=== PATIENT | female | born 1965 | race Caucasian/White ===

== ENCOUNTER 2018-09-20 12:35 | Inpatient (IN) | payer BC, OTHER ==
[2018-09-20 15:35] VITALS: BMI 27.6
--- NOTE | 2018-09-20 16:46 | HP ---
CIWA Score Nausea/Vomitin Muscle Tremors: 4-Moderate,w/Arms Extend Anxiety: 2 Agitation: 1-Slight > Activity Paroxysmal Sweats: 2 Orientation: 0-Oriented Tacttile Disturbances: 0-None Auditory Disturbances: 0-None Visual Disturbances: 0-None Headache: 2-Mild CIWA-Ar Total Score: 13 - Admission Criteria OASAS Guidelines: Admission for Medically Managed Detox: Requires at least one of the followin. CIWA greater than 12 2. Seizures within the past 24 hours 3. Delirium tremens within the past 24 hours 4. Hallucinations within the past 24 hours 5. Acute intervention needed for co occurring medical disorder 6. Acute intervention needed for co occurring psychiatric disorder 7. Severe withdrawal that cannot be handled at a lower level of care (continued vomiting, continued diarrhea, abnormal vital signs) requiring intravenous medication and/or fluids 8. Patient presents the following: CIWA greater than 12 Admission Criteria Met: Admission criteria met Admission ROS [facility] - [facility] Chief Complaint: alcohol detox: "Im an alcoholic and don't want to " 53 yo with hypothyroidism, pre-diabetic, colon polyps, asthma. stopped for about 3 years after detox in 2013. Restarted drinking 04/2018 Alcohol- drinks vodka- 1 pint-1 1/2 pints/day, no h/o seizures. DUR_ no controlled substances Utox- neg, SOO- 0.429 Allergies/Adverse Reactions: Allergies Allergy/AdvReac Type Severity Reaction Status Date / Time No Known Allergies Allergy Verified 09/20/18 18:47 Exam Limitations: No Limitations - Ebola screening Have you traveled outside of the country in the last 21 days: No (N) Have you had contact with anyone from an Ebola affected area: No Have you been sick,other than usual withdrawal symptoms: No Do you have a fever: No - Review of Systems Constitutional: No Symptoms Reported EENT: reports: No Symptoms Reported Respiratory: reports: No Symptoms reported Cardiac: reports: No Symptoms Reported GI: reports: No Symptoms Reported : reports: No Symptoms Reported Musculoskeletal: reports: No Symptoms Reported Integumentary: reports: No Symptoms Reported Neuro: reports: No Symptoms reported Endocrine: reports: No Symptoms Reported Hematology: reports: No Symptoms Reported Psychiatric: reports: No Sypmtoms Reported Other Systems: Reviewed and Negative Patient History - Patient Medical History Hx Anemia: No Hx Asthma: Yes (DX 2000) Hx Chronic Obstructive Pulmonary Disease (COPD): No Hx Cancer: No Hx Cardiac Disorders: No Hx Congestive Heart Failure: No Hx Hypertension: No Hx Hypercholesterolemia: No Hx Pacemaker: No HX Cerebrovascular Accident: No Hx Seizures: No Hx Dementia: No Hx Diabetes: Yes (pre diabetes) Hx Gastrointestinal Disorders: No Hx Liver Disease: No Hx Genitourinary Disorders: No Hx Sexually Transmitted Disorders: No Hx Renal Disease (ESRD): No Hx Thyroid Disease: Yes (hypothyroidism ) Hx Human Immunodeficiency Virus (HIV): No Hx Hepatitis C: No Hx Depression: Yes Hx Suicide Attempt: No Hx Bipolar Disorder: No Hx Schizophrenia: No Other Medical History: hypothyroidism - Patient Surgical History Hx Neurologic Surgery: No Hx Cataract Extraction: No Hx Cardiac Surgery: No Hx Lung Surgery: No Hx Breast Surgery: No Hx Breast Biopsy: No Hx Abdominal Surgery: No Hx Appendectomy: No Hx Cholecystectomy: No Hx Genitourinary Surgery: No Hx Section: Yes (1X 05/2007) Hx Orthopedic Surgery: No Anesthesia Reaction: No - PPD History Documented Results: Negative w/o proof Date: 07/10/15 PPD to be Administered?: Yes - Reproductive History Patient is a Female of Child Bearing Age (11 -55 yrs old): Yes Patient : No - Smoking Cessation Smoking history: Former smoker Have you smoked in the past 12 months: No Aproximately how many cigarettes per day: 0 If you are a former smoker, when did you quit?: 2001 Cigars Per Day: 0 Hx Chewing Tobacco Use: No Initiated information on smoking cessation: No - Substances Abused Alcohol Route: Oral Frequency: Daily Amount used: liquor- 1 pint Age of first use: 8 Date of Last Use: 09/20/18 Family Disease History - Family Disease History Family Disease History: Heart Disease: Father (htn, alcoholic), Mother (htn), Respiratory: Brother (asthma , alcoholics) Admission Physical Exam BHS - Vital Signs Vital Signs: Vital Signs - 24 hr 09/20/18 15:33 Temperature 97.1 F L Pulse Rate 92 H Respiratory 16 Rate Blood Pressure 122/87 - Physical General Appearance: Yes: Disheveled, Intoxicated HEENTM: Yes: Within Normal Limits, Normal ENT Inspection (hard of hearing- for the last 2 years- has hearing aids- but did not buy b/c of high copay), Pharynx Normal Respiratory: Yes: Within Normal Limits, Lungs Clear, Other (pt states L side pain 10th-12th rib area- says had a fall about 3 days ago- did not seek medical care) Neck: Yes: Within Normal Limits Cardiology: Yes: Within Normal Limits, Regular Rhythm Abdominal: Yes: Within Normal Limits Back: Yes: Within Normal Limits, Normal Inspection Musculoskeletal: Yes: Other (pt states gait unsteady because of peripheral neuropathy) Extremities: Yes: Within Normal Limits Neurological: Yes: Within Normal Limits (pt states she has peripheral neuropathy -so unsteady gait) Integumentary: Yes: Within Normal Limits Lymphatic: Yes: Within Normal Limits BHS Breath Alcohol Content Breath Alcohol Content: 0.429 Urine Pregancy Test - Result Urine Test Results: Negative- NO Line Present Urine Drug Screen - Results Drug Screen Negative: Yes
[2018-09-20] MEDS ORDERED: chlordiazePOXIDE HCL 25 MG CAPSULE PO PRN (16:58)
[2018-09-20] MEDS ORDERED: MENTHOL/PHENOL 1 EACH UD MM PRN (16:59)
[2018-09-20] MEDS ORDERED: MAGNESIUM HYDROX 2400MG/30ML ORAL SUSPENSION 30 ML CUP PO PRN (16:59)
[2018-09-20] MEDS ORDERED: LOPERAMIDE HCL 2 MG CAPSULE PO PRN (16:59)
[2018-09-20] MEDS ORDERED: ACETAMINOPHEN 325 MG TABLET (FP) PO PRN (16:59)
[2018-09-20] MEDS ORDERED: MAG HYDROX/AL HYDROX/SIMETH 30 ML UNIT-DOSE CUP PO PRN (16:59)
[2018-09-20] MEDS ORDERED: guaiFENesin/D-METHORPHAN HB 10 ML UNIT-DOSE CUPS PO PRN (16:59)
[2018-09-20] MEDS ORDERED: P-EPHED 60MG/TRIPROLIDI 2.5MG TABLET PO PRN (16:59)
[2018-09-20] MEDS ORDERED: MAGNESIUM CITRATE 300 ML BOTTLE PO PRN (16:59)
[2018-09-20] MEDS ORDERED: ALBUTEROL SO4 8 GM HFA INHALER IH PRN (17:04)
[2018-09-20] MEDS: THIAMINE HCL 100 MG TABLET (FP) PO SCH (22:24)
[2018-09-20] MEDS: chlordiazePOXIDE HCL 25 MG CAPSULE PO SCH (22:25)
[2018-09-21] MEDS: chlordiazePOXIDE HCL 25 MG CAPSULE PO SCH ×4 (05:54→22:04)
[2018-09-21] MEDS ORDERED: LEVOTHYROXINE NA 25 MCG TABLET (FP) ONE (05:59)
[2018-09-21] MEDS ORDERED: LEVOTHYROXINE NA 100 MCG TABLET (FP) ONE (05:59)
[2018-09-21] MEDS ORDERED: LEVOTHYROXINE NA 25 MCG TABLET (FP) PO SCH (07:00)
[2018-09-21] MEDS: LEVOTHYROXINE 100 MCG, LEVOTHYROXINE 25 MCG PO SCH (07:03)
[2018-09-21] MEDS: SERTRALINE HCL 50 MG TABLET (FP) PO SCH (10:29)
[2018-09-21] MEDS: PRENATAL VITAMINS W/ FOLIC ACID TABLET (FP) PO SCH (10:29)
[2018-09-21] MEDS: IBUPROFEN 400 MG TABLET (FP) PO PRN ×2 (10:31→17:24)
[2018-09-21 11:22] LABS: ALBUMIN 3.9 g/dl (3.4-5.0); ALK PHOS 68 U/L (45-117); ANION GAP 9 MMOL/L (8-16); BILIRUBIN,TOTAL 0.8 mg/dL (0.2-1); BLOOD UREA NITROGEN 16 mg/dL (7-18); CALCIUM 8.9 mg/dL (8.5-10.1); CHLORIDE 102 mmol/L (98-107); CO2 31 mmol/L (21-32); CREATININE 0.9 mg/dL (0.55-1.3); GLUCOSE,RANDOM 138 mg/dL (74-106); POTASSIUM 3.5 mmol/L (3.5-5.1); SGOT/AST 40 U/L (15-37); SGPT/ALT 43 U/L (13-61); SODIUM 143 mmol/L (136-145); TOT PROT 7.2 g/dl (6.4-8.2)
--- NOTE | 2018-09-21 11:26 | CONSULT ---
[facility] Psychiatric Consult - Data Date of interview: 09/21/18 Admission source: [facility] Identifying data: 53 y/o AA female , domiciled unemployed mother of 3 , depenedent on Substance Abuse History: Admitted to our unit for ETOH abuse, she denies balck out spelss or seizure disorder. She has pior Detox admission [facility]. She explained that she has been sober until she relapsed last year drinking alcohol she drinks Vodka daily. Refer to drug counselor summary for more detailed drug info Medical History: Chronic back pain, Asthma, pre-DM, colon polyps and hypothyroidism Psychiatric History: Patient appears drowsy, sedated, fatigued, fell as sleep during the examination, she explained that she attends [facility] clinic @ [facility] drug program. She was unable to provide additional information Physical/Sexual Abuse/Trauma History: unable to assess Mental Status Exam - Mental Status Exam Cognitive Function: Impaired Patient Appearance: Unkempt, Disheveled Mood: Nervous Affect: Inappropriate Patient Behavior: Sedated, Fatigued, Distractible, Asleep, Wandering Speech Pattern: Delayed, Slurred Voice Loudness: Moderately Soft/Quiet Thought Process: Disoriented Thought Disorder: Not Present Suicidal Ideation: Denies Homicidal Ideation: Denies (patient does seemed high risk at this time. I am unable to assess the reaminder of her mental status examination ) Insight/Judgement: Poor Sleep: Poorly Appetite: Fair (Unable to asses the reminder of her mental status examination ) Psychiatric Findings - Problem List ([place] 1, 2,3) (1) Chronic low back pain Current Visit: No Status: Acute (2) Alcohol dependence with uncomplicated withdrawal Current Visit: No Status: Chronic (3) Asthma Current Visit: No Status: Chronic Qualifiers: Asthma severity: mild intermittent (4) Hypothyroidism Current Visit: No Status: Chronic Qualifiers: Hypothyroidism type: unspecified Qualified Code(s): E03.9 - Hypothyroidism , unspecified - Initial Treatment Plan Initial Treatment Plan: Continue Detox treatment and protcol. Monitor progress. Reasses mental status examination when patient is awake and able to participate in a meaningful mental status examination
[2018-09-21] MEDS: cloNIDine HCL 0.1 MG TABLET PO PRN ×2 (18:14→22:04)
--- NOTE | 2018-09-21 18:22 | PN ---
S CIWA - CIWA Score Nausea/Vomitin Muscle Tremors: 4-Moderate,w/Arms Extend Anxiety: 4-Mod. Anxious/Guarded Agitation: 4-Moderately Restless Paroxysmal Sweats: 3 Orientation: 0-Oriented Tacttile Disturbances: 0-None Auditory Disturbances: 0-None Visual Disturbances: 0-None Headache: 0-None Present CIWA-Ar Total Score: 17 BHS Progress Note (SOAP) Subjective: Chills, agitated Objective: 09/21/18 18:20 Last Vital Signs Temp Pulse Resp BP Pulse Ox 98.3 F 84 20 151/90 09/21/18 15:07 09/21/18 15:30 09/21/18 15:30 09/21/18 15:07 Laboratory Tests 09/21/18 09/21/18 09/21/18 07:35 07:35 07:35 WBC Cancelled Corrected WBC (auto) Cancelled RBC Cancelled Hgb Cancelled Hct Cancelled MCV Cancelled MCH Cancelled MCHC Cancelled RDW Cancelled Plt Count Cancelled MPV Cancelled Manual Slide Review Cancelled Platelet Comment Cancelled Sodium 143 Potassium 3.5 Chloride 102 Carbon Dioxide 31 Anion Gap 9 BUN 16 Creatinine 0.9 Creat Clearance w eGFR > 60 Random Glucose 138 H Calcium 8.9 Total Bilirubin 0.8 AST 40 H ALT 43 Alkaline Phosphatase 68 Total Protein 7.2 Albumin 3.9 RPR Titer Nonreactive Labs reviewed; CBC reordered in AM Assessment: 09/21/18 18:21 Withdrawal symptoms Plan: Continue detox Encouraged PO water hydration
[2018-09-21] MEDS: THIAMINE HCL 100 MG TABLET (FP) PO SCH (22:03)
[2018-09-21] MEDS: MELATONIN 5 MG TABLETS PO PRN (22:04)
[2018-09-21 22:58] LABS: URINE APPEARANCE SLCLOUDY; URINE BILIRUBIN NEGATIVE (<2.0 mg/dL); URINE COLOR YELLOW; URINE GLUCOSE (UA) NEGATIVE (NEGATIVE); URINE KETONE NEGATIVE (NEGATIVE); URINE LEUK ESTERASE TRACE (NEGATIVE); URINE NITRITE NEGATIVE (NEGATIVE); URINE PROTEIN NEGATIVE (NEGATIVE); URINE UROBILINOGEN 4.0 E.U/dl mg/dL (0.2-1.0)
[2018-09-21 23:02] LABS: CALCIUM OXALATE CRYSTALS MANY /hpf (NONE SEEN); URINE MUCUS RARE
[2018-09-22] MEDS: chlordiazePOXIDE HCL 25 MG CAPSULE PO SCH ×3 (05:44→17:12)
[2018-09-22] MEDS ORDERED: LEVOTHYROXINE NA 100 MCG TABLET (FP) ONE (05:45)
[2018-09-22] MEDS ORDERED: LEVOTHYROXINE NA 25 MCG TABLET (FP) ONE (05:45)
[2018-09-22] MEDS: LEVOTHYROXINE 100 MCG, LEVOTHYROXINE 25 MCG PO SCH (07:28)
--- NOTE | 2018-09-22 09:32 | PN ---
S CIWA - CIWA Score Nausea/Vomitin-Mild Nausea/No Vomiting Muscle Tremors: 2 Anxiety: 1-Mildly Anxious Agitation: 1-Slight > Activity Paroxysmal Sweats: 3 Orientation: 0-Oriented Tacttile Disturbances: 0-None Auditory Disturbances: 0-None Visual Disturbances: 0-None Headache: 0-None Present CIWA-Ar Total Score: 8 BHS Progress Note (SOAP) Subjective: sweats slight tremors Objective: 09/22/18 09:31 Sleeping, but arousable to verbal stimuli A & O x 3, lips dry Vital Signs Temperature 98.1 F 09/22/18 09:20 Pulse Rate 71 09/22/18 09:20 Respiratory Rate 18 09/22/18 09:20 Blood Pressure 117/79 09/22/18 09:20 O2 Sat by Pulse Oximetry (%) Laboratory Last Values WBC Cancelled 09/21/18 07:35 Corrected WBC (auto) Cancelled 09/21/18 07:35 RBC Cancelled 09/21/18 07:35 Hgb Cancelled 09/21/18 07:35 Hct Cancelled 09/21/18 07:35 MCV Cancelled 09/21/18 07:35 MCH Cancelled 09/21/18 07:35 MCHC Cancelled 09/21/18 07:35 RDW Cancelled 09/21/18 07:35 Plt Count Cancelled 09/21/18 07:35 MPV Cancelled 09/21/18 07:35 Manual Slide Review Cancelled 09/21/18 07:35 Platelet Comment Cancelled 09/21/18 07:35 Sodium 143 mmol/L (136-145) 09/21/18 07:35 Potassium 3.5 mmol/L (3.5-5.1) 09/21/18 07:35 Chloride 102 mmol/L (98-107) 09/21/18 07:35 Carbon Dioxide 31 mmol/L (21-32) 09/21/18 07:35 Anion Gap 9 MMOL/L (8-16) 09/21/18 07:35 BUN 16 mg/dL (7-18) 09/21/18 07:35 Creatinine 0.9 mg/dL (0.55-1.3) 09/21/18 07:35 Creat Clearance w eGFR > 60 (>60) 09/21/18 07:35 Random Glucose 138 mg/dL (74-106) H 09/21/18 07:35 Calcium 8.9 mg/dL (8.5-10.1) 09/21/18 07:35 Total Bilirubin 0.8 mg/dL (0.2-1) 09/21/18 07:35 AST 40 U/L (15-37) H 09/21/18 07:35 ALT 43 U/L (13-61) 09/21/18 07:35 Alkaline Phosphatase 68 U/L (45-117) 09/21/18 07:35 Total Protein 7.2 g/dl (6.4-8.2) 09/21/18 07:35 Albumin 3.9 g/dl (3.4-5.0) 09/21/18 07:35 Urine Color Yellow 09/21/18 17:34 Urine Appearance Slcloudy 09/21/18 17:34 Urine pH 7.0 (5.0-8.0) 09/21/18 17:34 Ur Specific [place] 1.020 (1.010-1.035) 09/21/18 17:34 Urine Protein Negative (NEGATIVE) 09/21/18 17:34 Urine Glucose (UA) Negative (NEGATIVE) 09/21/18 17:34 Urine Ketones Negative (NEGATIVE) 09/21/18 17:34 Urine Blood Negative (NEGATIVE) 09/21/18 17:34 Urine Nitrite Negative (NEGATIVE) 09/21/18 17:34 Urine Bilirubin Negative (<2.0 mg/dL) 09/21/18 17:34 Urine Urobilinogen 4.0 e.u/dl mg/dL (0.2-1.0) H 09/21/18 17:34 Ur Leukocyte Esterase Trace (NEGATIVE) 09/21/18 17:34 Urine WBC (Auto) 17 /hpf (3-5) 09/21/18 17:34 Urine RBC (Auto) 9 /hpf (0-3) 09/21/18 17:34 Calcium Oxalate Crystal Many /hpf (NONE SEEN) 09/21/18 17:34 Urine Mucus Rare 09/21/18 17:34 RPR Titer Nonreactive (NONREACTIVE) 09/21/18 07:35 Noted.pending CBC results Assessment: 09/22/18 09:35 withdrawal sx Plan: continue detox monitor pending lab results increase hydration
[2018-09-22 10:13] LABS: BASO % 0.7 % (0-2.0); EOS % 3.6 % (0-4.5); HEMATOCRIT 35.2 % (32.4-45.2); HEMOGLOBIN 12.3 GM/dL (10.7-15.3); LYMPH % 42.6 % (8-40); MCH 33.8 pg (25.7-33.7); MCHC 34.8 g/dl (32.0-36.0); MEAN CELL VOLUME 97.1 fl (80-96); MEAN PLT VOLUME 9.5 fl (7.5-11.1); MONO % 9.2 % (3.8-10.2); NEUT % 43.9 % (42.8-82.8); PLATELET COUNT 117 K/MM3 (134-434); RBC 3.63 M/mm3 (3.60-5.2); WHITE BLOOD COUNT 4.1 K/mm3 (4.0-10.0)
[2018-09-22] MEDS: PRENATAL VITAMINS W/ FOLIC ACID TABLET (FP) PO SCH (10:17)
[2018-09-22] MEDS: SERTRALINE HCL 50 MG TABLET (FP) PO SCH (10:17)
[2018-09-22 11:16] LABS: PLATELET ESTIMATE SLT DECREASE
[2018-09-22] MEDS: IBUPROFEN 400 MG TABLET (FP) PO PRN (20:44)
[2018-09-22] MEDS: cloNIDine HCL 0.1 MG TABLET PO PRN (22:03)
[2018-09-22] MEDS: THIAMINE HCL 100 MG TABLET (FP) PO SCH (22:03)
[2018-09-22] MEDS: chlordiazePOXIDE 5 MG CAPSULE PO SCH (22:03)
[2018-09-22] MEDS: MELATONIN 5 MG TABLETS PO PRN (22:04)
[2018-09-23] MEDS ORDERED: LEVOTHYROXINE NA 100 MCG TABLET (FP) ONE (03:14)
[2018-09-23] MEDS ORDERED: LEVOTHYROXINE NA 25 MCG TABLET (FP) ONE (03:14)
[2018-09-23] MEDS: chlordiazePOXIDE 5 MG CAPSULE PO SCH ×3 (06:00→18:14)
[2018-09-23] MEDS: LEVOTHYROXINE 100 MCG, LEVOTHYROXINE 25 MCG PO SCH (06:03)
[2018-09-23] MEDS: SERTRALINE HCL 50 MG TABLET (FP) PO SCH (10:09)
[2018-09-23] MEDS: PRENATAL VITAMINS W/ FOLIC ACID TABLET (FP) PO SCH (10:09)
[2018-09-23] MEDS: IBUPROFEN 400 MG TABLET (FP) PO PRN ×2 (10:12→22:15)
--- NOTE | 2018-09-23 13:56 | PN ---
BHS Progress Note (SOAP) Subjective: Body Aches. Objective: PATIENT A & O X 3. IN NO ACUTE DISTRESS. 09/23/18 13:54 Vital Signs Temperature 98.4 F 09/23/18 13:21 Pulse Rate 75 09/23/18 13:21 Respiratory Rate 18 09/23/18 13:21 Blood Pressure 139/94 09/23/18 13:21 O2 Sat by Pulse Oximetry (%) Laboratory Tests 09/21/18 09/21/18 09/21/18 07:35 07:35 07:35 WBC Cancelled Corrected WBC (auto) Cancelled RBC Cancelled Hgb Cancelled Hct Cancelled MCV Cancelled MCH Cancelled MCHC Cancelled RDW Cancelled Plt Count Cancelled MPV Cancelled Absolute Neuts (auto) Neutrophils % Lymphocytes % Monocytes % Eosinophils % Basophils % Nucleated RBC % Manual Slide Review Cancelled Platelet Estimate Platelet Comment Cancelled Sodium 143 Potassium 3.5 Chloride 102 Carbon Dioxide 31 Anion Gap 9 BUN 16 Creatinine 0.9 Creat Clearance w eGFR > 60 Random Glucose 138 H Calcium 8.9 Total Bilirubin 0.8 AST 40 H ALT 43 Alkaline Phosphatase 68 Total Protein 7.2 Albumin 3.9 Urine Color Urine Appearance Urine pH Ur Specific [place] Urine Protein Urine Glucose (UA) Urine Ketones Urine Blood Urine Nitrite Urine Bilirubin Urine Urobilinogen Ur Leukocyte Esterase Urine WBC (Auto) Urine RBC (Auto) Calcium Oxalate Crystal Urine Mucus RPR Titer Nonreactive 09/21/18 09/22/18 17:34 07:55 WBC 4.1 Corrected WBC (auto) RBC 3.63 Hgb 12.3 Hct 35.2 MCV 97.1 H MCH 33.8 H MCHC 34.8 RDW 17.0 H Plt Count 117 L D MPV 9.5 Absolute Neuts (auto) 1.8 Neutrophils % 43.9 Lymphocytes % 42.6 H Monocytes % 9.2 Eosinophils % 3.6 Basophils % 0.7 Nucleated RBC % 0 Manual Slide Review Platelet Estimate Slt decrease Platelet Comment Sodium Potassium Chloride Carbon Dioxide Anion Gap BUN Creatinine Creat Clearance w eGFR Random Glucose Calcium Total Bilirubin AST ALT Alkaline Phosphatase Total Protein Albumin Urine Color Yellow Urine Appearance Slcloudy Urine pH 7.0 Ur Specific [place] 1.020 Urine Protein Negative Urine Glucose (UA) Negative Urine Ketones Negative Urine Blood Negative Urine Nitrite Negative Urine Bilirubin Negative Urine Urobilinogen 4.0 e.u/dl H Ur Leukocyte Esterase Trace Urine WBC (Auto) 17 Urine RBC (Auto) 9 Calcium Oxalate Crystal Many Urine Mucus Rare RPR Titer LABS NOTED. Assessment: 09/23/18 13:54 WITHDRAWAL SYMPTOMS. THROMBOCYTOPENIA. 09/23/18 13:56 Plan: CONTINUE DETOX. ENCOURAGE AMBULATION INCREASE DAILY PO FLUID INTAKE. PATIENT SCHEDULED FOR D/C TOMORROW.
[2018-09-23] MEDS: chlordiazePOXIDE HCL 10 MG CAPSULE PO SCH (22:13)
[2018-09-23] MEDS: THIAMINE HCL 100 MG TABLET (FP) PO SCH (22:13)
[2018-09-23] MEDS: MELATONIN 5 MG TABLETS PO PRN (22:15)
[2018-09-24] MEDS ORDERED: LEVOTHYROXINE NA 25 MCG TABLET (FP) ONE (04:26)
[2018-09-24] MEDS ORDERED: LEVOTHYROXINE NA 100 MCG TABLET (FP) ONE (04:26)
[2018-09-24] MEDS: chlordiazePOXIDE HCL 10 MG CAPSULE PO SCH (06:05)
[2018-09-24 06:16] VITALS: TEMP 96.6
[2018-09-24] MEDS: LEVOTHYROXINE 100 MCG, LEVOTHYROXINE 25 MCG PO SCH (07:09)
[2018-09-24 09:19] VITALS: BP 137/93; PULSE 75
--- NOTE | 2018-09-24 12:07 | DS ---
[facility] Detox Discharge Summary Admission Date: 09/20/18 Discharge Date: 09/24/18 - History Present History: Alcohol Dependence Additional Comments: 53 years old female admitted on 09/20/18 for alcohol withdrawal stabilization completed detox regimen aftercare she preferred primary care provider Dr. Patel for medical mental and addiction issues Pertinent Past History: patient agrees to go to community self help 12 steps - Physical Exam Results Vital Signs: Vital Signs Temperature 96.6 F L 09/24/18 09:18 Pulse Rate 75 09/24/18 09:18 Respiratory Rate 18 09/24/18 09:18 Blood Pressure 137/93 09/24/18 09:18 O2 Sat by Pulse Oximetry (%) Pertinent Admission Physical Exam Findings: alcohol withdrawal sx Laboratory Last Values WBC 4.1 K/mm3 (4.0-10.0) 09/22/18 07:55 Corrected WBC (auto) Cancelled 09/21/18 07:35 RBC 3.63 M/mm3 (3.60-5.2) 09/22/18 07:55 Hgb 12.3 GM/dL (10.7-15.3) 09/22/18 07:55 Hct 35.2 % (32.4-45.2) 09/22/18 07:55 MCV 97.1 fl (80-96) H 09/22/18 07:55 MCH 33.8 pg (25.7-33.7) H 09/22/18 07:55 MCHC 34.8 g/dl (32.0-36.0) 09/22/18 07:55 RDW 17.0 % (11.6-15.6) H 09/22/18 07:55 Plt Count 117 K/MM3 (134-434) L D 09/22/18 07:55 MPV 9.5 fl (7.5-11.1) 09/22/18 07:55 Absolute Neuts (auto) 1.8 K/mm3 (1.5-8.0) 09/22/18 07:55 Neutrophils % 43.9 % (42.8-82.8) 09/22/18 07:55 Lymphocytes % 42.6 % (8-40) H 09/22/18 07:55 Monocytes % 9.2 % (3.8-10.2) 09/22/18 07:55 Eosinophils % 3.6 % (0-4.5) 09/22/18 07:55 Basophils % 0.7 % (0-2.0) 09/22/18 07:55 Nucleated RBC % 0 % (0-0) 09/22/18 07:55 Manual Slide Review Cancelled 09/21/18 07:35 Platelet Estimate Slt decrease 09/22/18 07:55 Platelet Comment 09/22/18 07:55 Sodium 143 mmol/L (136-145) 09/21/18 07:35 Potassium 3.5 mmol/L (3.5-5.1) 09/21/18 07:35 Chloride 102 mmol/L (98-107) 09/21/18 07:35 Carbon Dioxide 31 mmol/L (21-32) 09/21/18 07:35 Anion Gap 9 MMOL/L (8-16) 09/21/18 07:35 BUN 16 mg/dL (7-18) 09/21/18 07:35 Creatinine 0.9 mg/dL (0.55-1.3) 09/21/18 07:35 Creat Clearance w eGFR > 60 (>60) 09/21/18 07:35 Random Glucose 138 mg/dL (74-106) H 09/21/18 07:35 Calcium 8.9 mg/dL (8.5-10.1) 09/21/18 07:35 Total Bilirubin 0.8 mg/dL (0.2-1) 09/21/18 07:35 AST 40 U/L (15-37) H 09/21/18 07:35 ALT 43 U/L (13-61) 09/21/18 07:35 Alkaline Phosphatase 68 U/L (45-117) 09/21/18 07:35 Total Protein 7.2 g/dl (6.4-8.2) 09/21/18 07:35 Albumin 3.9 g/dl (3.4-5.0) 09/21/18 07:35 Urine Color Yellow 09/21/18 17:34 Urine Appearance Slcloudy 09/21/18 17:34 Urine pH 7.0 (5.0-8.0) 09/21/18 17:34 Ur Specific [place] 1.020 (1.010-1.035) 09/21/18 17:34 Urine Protein Negative (NEGATIVE) 09/21/18 17:34 Urine Glucose (UA) Negative (NEGATIVE) 09/21/18 17:34 Urine Ketones Negative (NEGATIVE) 09/21/18 17:34 Urine Blood Negative (NEGATIVE) 09/21/18 17:34 Urine Nitrite Negative (NEGATIVE) 09/21/18 17:34 Urine Bilirubin Negative (<2.0 mg/dL) 09/21/18 17:34 Urine Urobilinogen 4.0 e.u/dl mg/dL (0.2-1.0) H 09/21/18 17:34 Ur Leukocyte Esterase Trace (NEGATIVE) 09/21/18 17:34 Urine WBC (Auto) 17 /hpf (3-5) 09/21/18 17:34 Urine RBC (Auto) 9 /hpf (0-3) 09/21/18 17:34 Calcium Oxalate Crystal Many /hpf (NONE SEEN) 09/21/18 17:34 Urine Mucus Rare 09/21/18 17:34 RPR Titer Nonreactive (NONREACTIVE) 09/21/18 07:35 lab noted - Treatment Hospital Course: Detox Protocol Followed, Detoxed Safely, Responded well, Discharged Condition Good, Rehab Referral Accepted Patient has Accepted a Rehab Referral to: primary care provider and community self help group - Medication Discharge Medications: Ambulatory Orders Levothyroxine [Synthroid -] 125 mcg PO DAILY 07/08/15 Gabapentin [Neurontin -] 750 mg PO HS 09/20/18 Methocarbamol [Robaxin -] 600 mg PO HS 09/20/18 Sertraline HCl [Zoloft -] 50 mg PO DAILY 09/20/18 Albuterol Sulfate Inhaler - [Ventolin HFA Inhaler -] 0 puff IH Q6HPO PRN #1 inhaler 09/24/18 Budesonide/Formeterol Fumarate [SYMBICORT 160/4.5mcg -] 1 inh PO BID #1 inhaler 09/24/18 Levothyroxine [Synthroid -] 125 mcg PO DAILY@0700 #14 tablet 09/24/18 - Diagnosis (1) Alcohol dependence with uncomplicated withdrawal Status: Acute (2) Asthma Status: Chronic Qualifiers: Asthma severity: mild Asthma persistence: intermittent Asthma complication type: with status asthmaticus Qualified Code(s): J45.22 - Mild intermittent asthma with status asthmaticus (3) Hypothyroidism Status: Chronic Qualifiers: Hypothyroidism type: unspecified Qualified Code(s): E03.9 - Hypothyroidism , unspecified - AMA Did Patient Leave Against Medical Advice: No
== END 2018-09-24 09:20 | disposition home or self-care (01) | DRG 775 ==
LOC: YASAS 12:35 → Y3N 19:06
PROVIDERS: ADMIT Neuromusculoskeletal Medicine & OMM; ATTEND Neuromusculoskeletal Medicine & OMM
PROC: HZ2ZZZZ Detoxification Services for Substance Abuse Treatment (ICD-10-PCS; principal; 2018-09-20)
DX: F10.230 Alcohol dependence with withdrawal, uncomplicated (principal); J45.22 Mild intermittent asthma with status asthmaticus; E03.9 Hypothyroidism, unspecified; R73.03 Prediabetes; E66.9 Obesity, unspecified; Z68.27 Body mass index [BMI] 27.0-27.9, adult; M54.5 Low back pain; G89.29 Other chronic pain; Z86.010 Personal history of colon polyps
CPT/HCPCS: 36415; 80053; 81003; 81015; 85025; 86593; J0735

== ENCOUNTER 2018-10-24 14:40 | Inpatient (IN) | payer BC ==
[2018-10-24 15:42] VITALS: BMI 28.4
--- NOTE | 2018-10-24 15:50 | HP ---
CIWA Score Nausea/Vomitin Muscle Tremors: 4-Moderate,w/Arms Extend Anxiety: 4-Mod. Anxious/Guarded Agitation: 4-Moderately Restless Paroxysmal Sweats: 3 Orientation: 0-Oriented Tacttile Disturbances: 0-None Auditory Disturbances: 0-None Visual Disturbances: 0-None Headache: 1-Very Mild CIWA-Ar Total Score: 18 - Admission Criteria OASAS Guidelines: Admission for Medically Managed Detox: Requires at least one of the followin. CIWA greater than 12 2. Seizures within the past 24 hours 3. Delirium tremens within the past 24 hours 4. Hallucinations within the past 24 hours 5. Acute intervention needed for co occurring medical disorder 6. Acute intervention needed for co occurring psychiatric disorder 7. Severe withdrawal that cannot be handled at a lower level of care (continued vomiting, continued diarrhea, abnormal vital signs) requiring intravenous medication and/or fluids 8. Admission ROS [facility] - HPI Chief Complaint: I need help I need to stop drinking. Allergies/Adverse Reactions: Allergies Allergy/AdvReac Type Severity Reaction Status Date / Time No Known Allergies Allergy Verified 10/24/18 15:45 History of Present Illness: pt is a 53yr old female with a history of alcohol dependence seeking detox for treatment. Exam Limitations: Intoxication - Ebola screening Have you traveled outside of the country in the last 21 days: No Have you had contact with anyone from an Ebola affected area: No Have you been sick,other than usual withdrawal symptoms: No Do you have a fever: No - Review of Systems Constitutional: Diaphoresis, Loss of Appetite, Changes in sleep EENT: reports: Hearing Loss ([place] both ears), Nose Congestion Respiratory: reports: No Symptoms reported Cardiac: reports: No Symptoms Reported GI: reports: Poor Appetite, Poor Fluid Intake : reports: No Symptoms Reported Musculoskeletal: reports: No Symptoms Reported Integumentary: reports: Flushing, Sweating Neuro: reports: Tingling, Tremors Endocrine: reports: Excessive Sweating, Flushing, Intolerance to Cold, Intolerance to Heat Hematology: reports: No Symptoms Reported Psychiatric: reports: Orientated x3, Agitated, Anxious Other Systems: Reviewed and Negative Patient History - Patient Medical History Hx Anemia: No Hx Asthma: Yes (DX 2000) Hx Chronic Obstructive Pulmonary Disease (COPD): No Hx Cancer: No Hx Cardiac Disorders: No Hx Congestive Heart Failure: No Hx Hypertension: No Hx Hypercholesterolemia: No Hx Pacemaker: No HX Cerebrovascular Accident: No Hx Seizures: No Hx Dementia: No Hx Diabetes: Yes (pre diabetes) Hx Gastrointestinal Disorders: No Hx Liver Disease: No Hx Genitourinary Disorders: No Hx Sexually Transmitted Disorders: No Hx Renal Disease (ESRD): No Hx Thyroid Disease: Yes (hypothyroidism ) Hx Human Immunodeficiency Virus (HIV): No Hx Hepatitis C: No Hx Depression: Yes Hx Suicide Attempt: No Hx Bipolar Disorder: No Hx Schizophrenia: No - Patient Surgical History Past Surgical History: No Hx Neurologic Surgery: No Hx Cataract Extraction: No Hx Cardiac Surgery: No Hx Lung Surgery: No Hx Breast Surgery: No Hx Breast Biopsy: No Hx Abdominal Surgery: No Hx Appendectomy: No Hx Cholecystectomy: No Hx Genitourinary Surgery: No Hx Section: Yes (1X 05/2007) Hx Orthopedic Surgery: No Anesthesia Reaction: No - PPD History Previous Implant?: Yes Documented Results: Negative w/proof Date: 09/22/18 PPD to be Administered?: Yes - Reproductive History Patient is a Female of Child Bearing Age (11 -55 yrs old): No - Smoking Cessation Smoking history: Former smoker Have you smoked in the past 12 months: No Aproximately how many cigarettes per day: 0 If you are a former smoker, when did you quit?: 2001 Cigars Per Day: 0 Hx Chewing Tobacco Use: No Initiated information on smoking cessation: No - Substance & Tx. History Hx Alcohol Use: Yes Hx Substance Use: No Substance Use Type: Alcohol Hx Substance Use Treatment: Yes (last detox [facility] 09/2018) - Substances Abused Alcohol Route: Oral Frequency: Daily Amount used: 1 PINT VODKA Age of first use: 9 Date of Last Use: 10/24/18 Family Disease History - Family Disease History Family Disease History: Heart Disease: Father (htn, alcoholic), Mother (htn), Respiratory: Brother (asthma , alcoholics) Admission Physical Exam [facility] - Vital Signs Vital Signs: Vital Signs - 24 hr 10/24/18 15:29 Temperature 96.8 F L Pulse Rate 108 H Respiratory 18 Rate Blood Pressure 137/77 - Physical General Appearance: Yes: Appropriately Dressed, Moderate Distress, Obese, Tremorous, Irritable, Sweating, Anxious HEENTM: Yes: Hearing grossly Normal, Normal Voice, Hearing Decreased Respiratory: Yes: Lungs Clear, Normal Breath Sounds, No Respiratory Distress Neck: Yes: No masses,lesions,Nodules Breast: Yes: Within Normal Limits Cardiology: Yes: Regular Rhythm, Regular Rate, S1, S2 Abdominal: Yes: Normal Bowel Sounds, Non Tender, Soft Genitourinary: Yes: Within Normal Limits Back: Yes: Normal Inspection Musculoskeletal: Yes: full range of Motion, Back pain Extremities: Yes: Normal Capillary Refill, Normal Inspection, Non-Tender, Tremors Neurological: Yes: Fully Oriented, Alert, Normal Response Integumentary: Yes: Diaphoresis Lymphatic: Yes: Within Normal Limits - Diagnostic (1) Alcohol dependence with uncomplicated withdrawal Current Visit: Yes Status: Chronic (2) Chronic low back pain Current Visit: Yes Status: Chronic Qualifiers: Back pain laterality: unspecified (3) Thrombocytopenia Current Visit: No Status: Acute (4) Asthma Current Visit: Yes Status: Chronic Qualifiers: Asthma severity: mild Asthma persistence: intermittent Asthma complication type: with status asthmaticus Qualified Code(s): J45.22 - Mild intermittent asthma with status asthmaticus (5) Hypothyroidism Current Visit: Yes Status: Chronic Qualifiers: Hypothyroidism type: unspecified Qualified Code(s): E03.9 - Hypothyroidism , unspecified (6) Overweight (BMI 25.0-29.9) Current Visit: Yes Status: Chronic (7) Depression Current Visit: Yes Status: Chronic Qualifiers: Depression Type: major depressive disorder Major depression episode severity: unspecified Cleared for Admission [facility] - Detox or Rehab [facility] Level of Care: Medically Managed Detox Regimen/Protocol: Librium [facility] Breath Alcohol Content Breath Alcohol Content: 0.301 Urine Pregancy Test - Result Urine Test Results: Negative- NO Line Present Urine Drug Screen - Results Drug Screen Negative: No Urine Drug Screen Results: BZO-Benzodiazepines Inpatient Rehab Admission - Rehab Decision to Admit Inpatient rehab admission?: No
[2018-10-24] MEDS ORDERED: MAGNESIUM CITRATE 300 ML BOTTLE PO PRN (15:56)
[2018-10-24] MEDS ORDERED: MAGNESIUM HYDROX 2400MG/30ML ORAL SUSPENSION 30 ML CUP PO PRN (15:56)
[2018-10-24] MEDS ORDERED: hydrOXYzine PAMOATE 50 MG CAPSULE (FP) PO PRN (15:56)
[2018-10-24] MEDS ORDERED: guaiFENesin/D-METHORPHAN HB 10 ML UNIT-DOSE CUPS PO PRN (15:56)
[2018-10-24] MEDS ORDERED: P-EPHED 60MG/TRIPROLIDI 2.5MG TABLET PO PRN (15:56)
[2018-10-24] MEDS ORDERED: LOPERAMIDE HCL 2 MG CAPSULE PO PRN (15:56)
[2018-10-24] MEDS ORDERED: chlordiazePOXIDE HCL 25 MG CAPSULE PO PRN (15:56)
[2018-10-24] MEDS ORDERED: MAG HYDROX/AL HYDROX/SIMETH 30 ML UNIT-DOSE CUP PO PRN (15:56)
[2018-10-24] MEDS ORDERED: chlordiazePOXIDE HCL 25 MG CAPSULE PO ONE (15:56)
[2018-10-24] MEDS ORDERED: MENTHOL/PHENOL 1 EACH UD MM PRN (15:56)
[2018-10-24] MEDS ORDERED: ACETAMINOPHEN 325 MG TABLET (FP) PO PRN (15:56)
[2018-10-24] MEDS ORDERED: IBUPROFEN 400 MG TABLET (FP) PO PRN (15:56)
[2018-10-24] MEDS ORDERED: ALBUTEROL SO4 8 GM HFA INHALER IH PRN (15:57)
[2018-10-24] MEDS: chlordiazePOXIDE HCL 25 MG CAPSULE PO SCH ×2 (18:29→22:36)
[2018-10-24] MEDS: THIAMINE HCL 100 MG TABLET (FP) PO SCH (22:35)
[2018-10-25] MEDS: chlordiazePOXIDE HCL 25 MG CAPSULE PO SCH ×4 (05:32→22:14)
[2018-10-25] MEDS: LEVOTHYROXINE NA 125 MCG TABLET (FP) PO SCH (06:03)
[2018-10-25 10:32] LABS: ALBUMIN 3.8 g/dl (3.4-5.0); ALK PHOS 88 U/L (45-117); ANION GAP 7 MMOL/L (8-16); BILIRUBIN,TOTAL 0.4 mg/dL (0.2-1); BLOOD UREA NITROGEN 12 mg/dL (7-18); CHLORIDE 103 mmol/L (98-107); CO2 30 mmol/L (21-32); GLUCOSE,RANDOM 110 mg/dL (74-106); POTASSIUM 3.9 mmol/L (3.5-5.1); SGOT/AST 107 U/L (15-37); SGPT/ALT 103 U/L (13-61); SODIUM 140 mmol/L (136-145); TOT PROT 7.1 g/dl (6.4-8.2)
[2018-10-25 10:34] LABS: HEMATOCRIT 37.6 % (32.4-45.2); HEMOGLOBIN 12.9 GM/dL (10.7-15.3); MCHC 34.5 g/dl (32.0-36.0); MEAN CELL VOLUME 98.7 fl (80-96); MEAN PLT VOLUME 8.7 fl (7.5-11.1); PLATELET COUNT 155 K/MM3 (134-434); RBC 3.81 M/mm3 (3.60-5.2); RDW 18.3 % (11.6-15.6); WHITE BLOOD COUNT 3.1 K/mm3 (4.0-10.0)
[2018-10-25] MEDS: PRENATAL VITAMINS W/ FOLIC ACID TABLET (FP) PO SCH (10:36)
--- NOTE | 2018-10-25 15:36 | PN ---
S CIWA - CIWA Score Nausea/Vomitin-No Nausea/No Vomiting Muscle Tremors: 5 Anxiety: 4-Mod. Anxious/Guarded Agitation: 3 Paroxysmal Sweats: 1-Minimal Palms Moist Orientation: 0-Oriented Tacttile Disturbances: 0-None Auditory Disturbances: 0-None Visual Disturbances: 0-None Headache: 0-None Present CIWA-Ar Total Score: 13 [facility] Progress Note (SOAP) Subjective: PT C/O TREMORS, ANXIETY FATIGUE BUT REPORTS THE MEDICATION IS HELPING HER AND BETTER THAN YESTERDAY BEFORE DETOXING. PT WS RESTING IN BED DURING ROUNDS, DECREASED APPETITE. Objective: 10/25/18 15:35 Vital Signs 10/25/18 10/25/18 08:00 10:21 Temperature 98.1 F Pulse Rate 94 H 97 H Respiratory 18 Rate Blood Pressure 112/81 Laboratory Tests 10/25/18 10/25/18 10/25/18 07:40 07:40 07:40 WBC 3.1 L RBC 3.81 Hgb 12.9 Hct 37.6 MCV 98.7 H MCH 34.0 H MCHC 34.5 RDW 18.3 H Plt Count 155 D MPV 8.7 Sodium 140 Potassium 3.9 Chloride 103 Carbon Dioxide 30 Anion Gap 7 L BUN 12 Creatinine 1.0 Creat Clearance w eGFR 57.56 Random Glucose 110 H Calcium 9.0 Total Bilirubin 0.4 AST 107 H ALT 103 H Alkaline Phosphatase 88 Total Protein 7.1 Albumin 3.8 RPR Titer Nonreactive Assessment: 10/25/18 15:35 WITHDRAWAL SX Plan: CONTINUE DETOX ENCOURAGED TO INCREASE PO FLUIDS
--- NOTE | 2018-10-25 16:16 | CONSULT ---
[facility] Psychiatric Consult - Data Date of interview: 10/25/18 Admission source: [facility] Identifying data: Readmission to [facility] for this 53 y/o female self -referred for detoxification treatment (alcohol dependence). Evaluated at [address] [place] [address]. Patient is and living with , a mother of three, domiciled , unemployed and supported by spouse. Substance Abuse History: Confirmed by patient in this session. Ms Parish declares that relapse into ETOH use was triggered by a series of adverse events in 2018 (sudden of a close friend, illness of her 11 y/o daughter, own medical hospitalization for ulcerative colitis) in 2018. Details of alcohol abuse patterns are described in current [facility] report as follows : Smoking history : Former smoker. Have you smoked in the past 12 months: No. Aproximately how many cigarettes per day: 0. If you are a former smoker, when did you quit?: 2001. Cigars Per Day: 0. Hx Chewing Tobacco Use: No. Initiated information on smoking cessation: No. - Substance & Tx. History. Hx Alcohol Use: Yes. Hx Substance Use: No. Substance Use Type: Alcohol. Hx Substance Use Treatment: Yes (last detox [facility] 09/2018). - Substances Abused. Alcohol. Route: Oral. Frequency: Daily. Amount used: 1 PINT VODKA. Age of first use: 9. Date of Last Use: 10/24/18 Medical History: History of ulcerative colitis (self-report), removal of polyps (colon), bronchial asthma, chronic lumbar pain and diabetes mellitus (pre- diabetes). Psychiatric History: Patient denies history of psychiatric hospitalizations. Ms Parish has, however, been struggling for many years with alcohol abuse and mood dysregulation. Diagnosed with MDD. She is currently seeing a psychiatrist at the [facility] in the [place]. Patient reports that since the switch to nortriptyline (from sertraline) less than a month ago, she has been experiencing side effects (mild, sporadic alteration of mental status at home). Dysphoric over the fact that she had relapsed into ETOH use after several months of abstinence. Patient denies history of suicide attempts. Physical/Sexual Abuse/Trauma History: No reported history of abuse. Additional Comment: Urine Drug Screen Results: BZO-Benzodiazepines. Noted. Mental Status Exam - Mental Status Exam Alert and Oriented to: Time, Place, Person Cognitive Function: Good Patient Appearance: Well Groomed (overweight ) Mood: Sad, Withdrawn, Anxious Affect: Appropriate, Mood Congruent, Constricted Patient Behavior: Fatigued, Cooperative (well-mannered) Speech Pattern: Clear, Appropriate Voice Loudness: Normal Thought Process: Intact, Goal Oriented Thought Disorder: Not Present Hallucinations: Denies Suicidal Ideation: Denies Homicidal Ideation: Denies Insight/Judgement: Fair Sleep: Fair (since initiation of detoxification) Appetite: Fair Gait/Station: Normal Psychiatric Findings - Problem List ([place] 1, 2,3) (1) Alcohol dependence with uncomplicated withdrawal Current Visit: Yes Status: Acute (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 Support. Sleep hygiene. AA meetings. Medications reviewed. Nortriptyline is held at this time (caution observed in view of recent complaint of oversedation + confusional state at home). Patient is advised to report to [facility] to discuss event with her psychiatrist for further management. Worley agrees. Observation.
[2018-10-25] MEDS: THIAMINE HCL 100 MG TABLET (FP) PO SCH (22:14)
[2018-10-25] MEDS: MELATONIN 5 MG TABLETS PO PRN (22:15)
[2018-10-26] MEDS: LEVOTHYROXINE NA 125 MCG TABLET (FP) PO SCH (06:01)
[2018-10-26] MEDS: chlordiazePOXIDE HCL 25 MG CAPSULE PO SCH ×2 (06:01→10:25)
[2018-10-26] MEDS: PRENATAL VITAMINS W/ FOLIC ACID TABLET (FP) PO SCH (10:25)
[2018-10-26] MEDS: chlordiazePOXIDE 5 MG CAPSULE PO SCH ×2 (17:36→22:14)
[2018-10-26] MEDS ORDERED: cloNIDine HCL 0.1 MG TABLET PO PRN (17:50)
--- NOTE | 2018-10-26 17:51 | PN ---
S CIWA - CIWA Score Nausea/Vomitin-Mild Nausea/No Vomiting Muscle Tremors: 2 Anxiety: 2 Agitation: 2 Paroxysmal Sweats: 2 Orientation: 0-Oriented Tacttile Disturbances: 0-None Auditory Disturbances: 0-None Visual Disturbances: 0-None Headache: 0-None Present CIWA-Ar Total Score: 9 S Progress Note (SOAP) Subjective: Sweating, interrupted sleep Objective: 10/26/18 17:46 Last Vital Signs Temp Pulse Resp BP Pulse Ox 97.9 F 87 18 149/60 10/26/18 17:45 10/26/18 17:45 10/26/18 17:45 10/26/18 17:45 Elevated b/p (denies htn) Laboratory Tests 10/25/18 10/25/18 10/25/18 07:40 07:40 07:40 WBC 3.1 L RBC 3.81 Hgb 12.9 Hct 37.6 MCV 98.7 H MCH 34.0 H MCHC 34.5 RDW 18.3 H Plt Count 155 D MPV 8.7 Sodium 140 Potassium 3.9 Chloride 103 Carbon Dioxide 30 Anion Gap 7 L BUN 12 Creatinine 1.0 Creat Clearance w eGFR 57.56 Random Glucose 110 H Calcium 9.0 Total Bilirubin 0.4 AST 107 H ALT 103 H Alkaline Phosphatase 88 Total Protein 7.1 Albumin 3.8 RPR Titer Nonreactive Labs reviewed: prerenal azotemia, elevated AST/ALT Assessment: 10/26/18 17:48 Withdrawal symptoms Noted with elevated b/p, prerenal azotemia and elevated LFTs Plan: Continue detox Elevated blood pressure without dx of HTN: start clonidine 0.1mg PO q8hr prn, low sodium diet Prerenal azotemia: encouraged PO water hydration, repeat bmp Elevated LFTs: repeat AST/ALT
[2018-10-26] MEDS: MELATONIN 5 MG TABLETS PO PRN (22:14)
[2018-10-26] MEDS: THIAMINE HCL 100 MG TABLET (FP) PO SCH (22:14)
[2018-10-27] MEDS: chlordiazePOXIDE 5 MG CAPSULE PO SCH ×2 (05:41→10:42)
[2018-10-27] MEDS: LEVOTHYROXINE NA 125 MCG TABLET (FP) PO SCH (07:12)
[2018-10-27 10:30] LABS: ANION GAP 9 MMOL/L (8-16); BLOOD UREA NITROGEN 10 mg/dL (7-18); CALCIUM 9.2 mg/dL (8.5-10.1); CHLORIDE 99 mmol/L (98-107); CO2 29 mmol/L (21-32); CREATININE 0.9 mg/dL (0.55-1.3); GLUCOSE,RANDOM 130 mg/dL (74-106); POTASSIUM 3.7 mmol/L (3.5-5.1); SGOT/AST 46 U/L (15-37); SGPT/ALT 65 U/L (13-61); SODIUM 137 mmol/L (136-145)
[2018-10-27] MEDS: PRENATAL VITAMINS W/ FOLIC ACID TABLET (FP) PO SCH (10:42)
--- NOTE | 2018-10-27 10:59 | PN ---
[facility] Progress Note (SOAP) Subjective: feeling much better a bit tired. some sweats Objective: 10/27/18 10:58 Vital Signs Temperature 98.1 F 10/27/18 09:20 Pulse Rate 81 10/27/18 09:20 Respiratory Rate 18 10/27/18 09:20 Blood Pressure 129/87 10/27/18 09:20 O2 Sat by Pulse Oximetry (%) aaox3 ambulating no acute distress Assessment: 10/27/18 10:58 mild withdrawal noted Plan: continue detox increase fluids d/c in am
[2018-10-27] MEDS: chlordiazePOXIDE HCL 10 MG CAPSULE PO SCH ×2 (17:10→22:18)
[2018-10-27 22:17] VITALS: TEMP 97.7
[2018-10-27] MEDS: THIAMINE HCL 100 MG TABLET (FP) PO SCH (22:18)
[2018-10-27] MEDS: MELATONIN 5 MG TABLETS PO PRN (22:18)
[2018-10-28] MEDS: chlordiazePOXIDE HCL 10 MG CAPSULE PO SCH (05:34)
[2018-10-28] MEDS: LEVOTHYROXINE NA 125 MCG TABLET (FP) PO SCH (06:34)
[2018-10-28 07:32] VITALS: BP 125/76; PULSE 74
--- NOTE | 2018-10-28 08:40 | DS ---
[facility] Detox Discharge Summary Admission Date: 10/24/18 Discharge Date: 10/28/18 - History Present History: Alcohol Dependence - Physical Exam Results Vital Signs: Vital Signs Temperature 97.7 F 10/28/18 07:31 Pulse Rate 74 10/28/18 07:31 Respiratory Rate 18 10/28/18 07:31 Blood Pressure 125/76 10/28/18 07:31 O2 Sat by Pulse Oximetry (%) - Treatment Hospital Course: Detox Protocol Followed, Detoxed Safely, Responded well, Discharged Condition Good, Rehab Referral Accepted - Medication Discharge Medications: Ambulatory Orders Methocarbamol [Robaxin -] 600 mg PO HS 09/20/18 Levothyroxine [Synthroid -] 125 mcg PO DAILY@0700 #14 tablet 09/24/18 Albuterol Sulfate Inhaler - [Ventolin HFA Inhaler -] 2 puff IH Q6HPO PRN Nortriptyline HCl [Pamelor -] 50 mg PO HS 10/24/18 - Diagnosis (1) Alcohol dependence with uncomplicated withdrawal Current Visit: Yes Status: Chronic (2) Chronic low back pain Current Visit: Yes Status: Chronic Qualifiers: Back pain laterality: unspecified Sciatica presence: unspecified whether sciatica present Qualified Code(s): M54.5 - Low back pain; G89.29 - Other chronic pain (3) Thrombocytopenia Current Visit: No Status: Acute (4) Asthma Current Visit: Yes Status: Chronic Qualifiers: Asthma severity: mild Asthma persistence: intermittent Asthma complication type: with status asthmaticus Qualified Code(s): J45.22 - Mild intermittent asthma with status asthmaticus (5) Hypothyroidism Current Visit: Yes Status: Chronic Qualifiers: Hypothyroidism type: unspecified Qualified Code(s): E03.9 - Hypothyroidism , unspecified (6) Overweight (BMI 25.0-29.9) Current Visit: Yes Status: Chronic (7) Depression Current Visit: Yes Status: Chronic Qualifiers: Depression Type: major depressive disorder Major depression episode severity: unspecified - AMA Did Patient Leave Against Medical Advice: No (referred to outpatient rehab)
[2018-10-28] MEDS: PRENATAL VITAMINS W/ FOLIC ACID TABLET (FP) PO SCH (09:18)
== END 2018-10-28 09:18 | disposition home or self-care (01) | DRG 897 ==
LOC: YASAS 14:40 → Y6N 16:26
PROVIDERS: ADMIT Surgery; ATTEND Surgery
PROC: HZ2ZZZZ Detoxification Services for Substance Abuse Treatment (ICD-10-PCS; principal; 2018-10-24)
DX: F10.230 Alcohol dependence with withdrawal, uncomplicated (principal); J45.22 Mild intermittent asthma with status asthmaticus; F10.24 Alcohol dependence with alcohol-induced mood disorder; F32.9 Major depressive disorder, single episode, unspecified; R73.03 Prediabetes; M54.5 Low back pain; G89.29 Other chronic pain; D69.6 Thrombocytopenia, unspecified; E03.9 Hypothyroidism, unspecified; E66.3 Overweight; Z68.28 Body mass index [BMI] 28.0-28.9, adult; R79.89 Other specified abnormal findings of blood chemistry; R74.0 Nonspecific elevation of levels of transaminase and lactic acid dehydrogenase [LDH]; Z87.891 Personal history of nicotine dependence
CPT/HCPCS: 36415; 80048; 80053; 84450; 84460; 85027; 86593; J0735

== ENCOUNTER 2019-04-20 10:02 | Inpatient (IN) | payer BC ==
[2019-04-20 11:19] VITALS: BMI 27.0
--- NOTE | 2019-04-20 14:02 | HP ---
CIWA Score Nausea/Vomitin-Mild Nausea/No Vomiting Muscle Tremors: 4-Moderate,w/Arms Extend Anxiety: 4-Mod. Anxious/Guarded Agitation: 4-Moderately Restless Paroxysmal Sweats: 3 Orientation: 0-Oriented Tacttile Disturbances: 0-None Auditory Disturbances: 0-None Visual Disturbances: 0-None Headache: 1-Very Mild CIWA-Ar Total Score: 17 - Admission Criteria OASAS Guidelines: Admission for Medically Managed Detox: Requires at least one of the followin. CIWA greater than 12 2. Seizures within the past 24 hours 3. Delirium tremens within the past 24 hours 4. Hallucinations within the past 24 hours 5. Acute intervention needed for co occurring medical disorder 6. Acute intervention needed for co occurring psychiatric disorder 7. Severe withdrawal that cannot be handled at a lower level of care (continued vomiting, continued diarrhea, abnormal vital signs) requiring intravenous medication and/or fluids 8. Admission ROS [facility] Chief Complaint: I am here on my own will because I need help. Allergies/Adverse Reactions: Allergies Allergy/AdvReac Type Severity Reaction Status Date / Time No Known Allergies Allergy Verified 04/20/19 11:12 History of Present Illness: pt is a 54yrold female with a history of alcohol dependence seeking detox for treatment. pt also has h/o hypothyroidism on synthroid 125mcq, h/o asthma on albuterol pt had seen psych in the past but no longer and not taking any medication. Exam Limitations: No Limitations - Ebola screening Have you traveled outside of the country in the last 21 days: No Have you had contact with anyone from an Ebola affected area: No Have you been sick,other than usual withdrawal symptoms: No Do you have a fever: No - Review of Systems Constitutional: Chills, Diaphoresis, Night Sweats, Changes in sleep, Unintentional Wgt. Loss EENT: reports: Tearing, Nose Congestion Respiratory: reports: No Symptoms reported Cardiac: reports: No Symptoms Reported GI: reports: Diarrhea, Nausea, Poor Fluid Intake : reports: No Symptoms Reported Musculoskeletal: reports: No Symptoms Reported Integumentary: reports: Bruising (left knee healing bruise d/t fall), Flushing, Sweating Neuro: reports: Headache, Tingling, Tremors Endocrine: reports: Excessive Sweating, Flushing, Intolerance to Cold Hematology: reports: No Symptoms Reported Psychiatric: reports: No Sypmtoms Reported, Judgement Intact, Mood/Affect Appropiate, Orientated x3, Agitated, Anxious Other Systems: Reviewed and Negative Patient History - Patient Medical History Hx Anemia: No Hx Asthma: Yes (DX 1999) Hx Chronic Obstructive Pulmonary Disease (COPD): No Hx Cancer: No Hx Cardiac Disorders: No Hx Congestive Heart Failure: No Hx Hypertension: No Hx Hypercholesterolemia: No Hx Pacemaker: No HX Cerebrovascular Accident: No Hx Seizures: No Hx Dementia: No Hx Diabetes: No Hx Gastrointestinal Disorders: No Hx Liver Disease: No Hx Genitourinary Disorders: No Hx Sexually Transmitted Disorders: No Hx Renal Disease (ESRD): No Hx Thyroid Disease: Yes (hypothyroidism ) Hx Human Immunodeficiency Virus (HIV): No Hx Hepatitis C: No Hx Depression: Yes (not taking any meds) Hx Suicide Attempt: No (pt denies) Hx Bipolar Disorder: No Hx Schizophrenia: No - Patient Surgical History Past Surgical History: No Hx Neurologic Surgery: No Hx Cataract Extraction: No Hx Cardiac Surgery: No Hx Lung Surgery: No Hx Breast Surgery: No Hx Breast Biopsy: No Hx Abdominal Surgery: No Hx Appendectomy: No Hx Cholecystectomy: No Hx Genitourinary Surgery: No Hx Section: Yes (1X 05/2007) Hx Orthopedic Surgery: No Anesthesia Reaction: No - PPD History Previous Implant?: Yes Documented Results: Negative w/proof Date: 09/22/18 Results: 0 mm PPD to be Administered?: No - Reproductive History Patient is a Female of Child Bearing Age (11 -55 yrs old): No - Smoking Cessation Smoking history: Former smoker Have you smoked in the past 12 months: No Aproximately how many cigarettes per day: 0 If you are a former smoker, when did you quit?: 2001 Cigars Per Day: 0 Hx Chewing Tobacco Use: No Initiated information on smoking cessation: No 'Breaking Loose' booklet given: 04/20/19 - Substance & Tx. History Hx Alcohol Use: Yes Hx Substance Use: No Substance Use Type: Alcohol Hx Substance Use Treatment: Yes (last detox 10/2018) - Substances abused Alcohol Substance route: Oral Frequency: Daily Amount used: 1 pint of vodka Age of first use: 11 Date of last use: 04/19/19 Family Disease History - Family Disease History Family Disease History: Heart Disease: Father (htn, alcoholic), Mother (htn), Respiratory: Brother (asthma , alcoholics) Admission Physical Exam [facility] - Vital Signs Vital Signs: Vital Signs - 24 hr 04/20/19 11:11 Temperature 96.8 F L Pulse Rate 98 H Respiratory 22 H Rate Blood Pressure 180/118 H - Physical General Appearance: Yes: Appropriately Dressed, Moderate Distress, Obese, Tremorous, Irritable, Sweating, Anxious HEENTM: Yes: Hearing grossly Normal, Normal Voice, Hearing Decreased, Nasal Congestion, Rhinorrhea Respiratory: Yes: Lungs Clear, Normal Breath Sounds, No Respiratory Distress Neck: Yes: No masses,lesions,Nodules Breast: Yes: Within Normal Limits, No Discharge Cardiology: Yes: Regular Rhythm, Regular Rate, S1, S2 Abdominal: Yes: Normal Bowel Sounds, Non Tender, Soft Genitourinary: Yes: Within Normal Limits Back: Yes: Normal Inspection Musculoskeletal: Yes: full range of Motion, Back pain Extremities: Yes: Normal Capillary Refill, Normal Inspection, Non-Tender, Tremors Neurological: Yes: Fully Oriented, Alert, Normal Response Integumentary: Yes: Normal Color, Diaphoresis Lymphatic: Yes: Within Normal Limits - Diagnostic (1) Alcohol dependence with uncomplicated withdrawal Current Visit: Yes Status: Chronic (2) Asthma Current Visit: Yes Status: Chronic Qualifiers: Asthma severity: mild Asthma persistence: intermittent Asthma complication type: with status asthmaticus Qualified Code(s): J45.22 - Mild intermittent asthma with status asthmaticus (3) Depression Current Visit: Yes Status: Chronic Qualifiers: Depression Type: major depressive disorder Major depression recurrence: unspecified whether recurrent Major depression episode severity: unspecified (4) Hypothyroidism Current Visit: Yes Status: Chronic Qualifiers: Hypothyroidism type: unspecified Qualified Code(s): E03.9 - Hypothyroidism , unspecified (5) Overweight (BMI 25.0-29.9) Current Visit: No Status: Chronic (6) Bruising Current Visit: Yes Status: Acute Comment: to left knee d/t fall (7) Back pain Current Visit: Yes Status: Chronic Qualifiers: Back pain location: low back pain Chronicity: chronic Back pain laterality: unspecified Cleared for Admission [facility] - Detox or Rehab [facility] Level of Care: Medically Managed Detox Regimen/Protocol: Librium Breathalyzer - Breathalyzer Breathalyzer: 0 Urine Drug Screen - Test Device Lot number: [id number] Expiration date: 01/30/21 - Control Is test valid?: Yes - Results Drug screen NEGATIVE: Yes Inpatient Rehab Admission - Rehab Decision to Admit Inpatient rehab admission?: No
[2019-04-20] MEDS ORDERED: ACETAMINOPHEN 325 MG TABLET (FP) PO PRN ×2 (14:13)
[2019-04-20] MEDS ORDERED: MAGNESIUM CITRATE 300 ML BOTTLE PO PRN (14:13)
[2019-04-20] MEDS ORDERED: P-EPHED 60MG/TRIPROLIDI 2.5MG TABLET PO PRN (14:13)
[2019-04-20] MEDS ORDERED: BISMUTH SUBSALICYLATE 262 MG/15 ML BTL PO PRN (14:13)
[2019-04-20] MEDS ORDERED: METHOCARBAMOL 500 MG TABLET PO PRN (14:13)
[2019-04-20] MEDS ORDERED: DICYCLOMINE HCL 10 MG CAPSULE PO PRN (14:13)
[2019-04-20] MEDS ORDERED: hydrOXYzine PAMOATE 25 MG CAPSULE (FP) PO PRN (14:13)
[2019-04-20] MEDS ORDERED: ONDANSETRON *ODT* 4 MG TABLET SL PRN ×2 (14:13→21:00)
[2019-04-20] MEDS ORDERED: IBUPROFEN 400 MG TABLET (FP) PO PRN ×2 (14:13)
[2019-04-20] MEDS ORDERED: MAGNESIUM HYDROX 2400MG/30ML ORAL SUSPENSION 30 ML CUP PO PRN (14:13)
[2019-04-20] MEDS ORDERED: chlordiazePOXIDE HCL 25 MG CAPSULE PO PRN (14:13)
[2019-04-20] MEDS ORDERED: MENTHOL/PHENOL 1 EACH UD MM PRN (14:13)
[2019-04-20] MEDS ORDERED: MAG HYDROX/AL HYDROX/SIMETH 30 ML UNIT-DOSE CUP PO PRN (14:13)
[2019-04-20] MEDS ORDERED: ALBUTEROL SO4 8 GM HFA INHALER IH PRN (14:15)
[2019-04-20] MEDS ORDERED: chlordiazePOXIDE HCL 25 MG CAPSULE PO ONE (14:45)
[2019-04-20] MEDS ORDERED: TRIMETHOBENZAMIDE HCL 300 MG CAPSULE PO ONE (15:35)
[2019-04-20] MEDS ORDERED: TRIMETHOBENZAMIDE HCL 200MG/2ML INJ IM ONE (15:43)
[2019-04-20] MEDS ORDERED: LISINOPRIL 10 MG TABLET (FP) PO ONE (15:44)
[2019-04-20] MEDS ORDERED: cloNIDine HCL 0.1 MG TABLET PO PRN (15:51)
--- NOTE | 2019-04-20 16:28 | EKG ---
Test Reason : Blood Pressure : / mmHG Vent. Rate : 099 BPM Atrial Rate : 099 BPM P-R Int : 166 ms QRS Dur : 084 ms QT Int : 386 ms P-R-T Axes : 072 046 045 degrees QTc Int : 495 ms NORMAL SINUS RHYTHM PROLONGED QT ABNORMAL ECG NO PREVIOUS ECGS AVAILABLE Confirmed by MELECIO BERRY MD ([id number]) on 04/20/2019 4:28:09 PM Referred By: Confirmed By:MELECIO BERRY MD
[2019-04-20 16:38] LABS: HEMATOCRIT 38.1 % (32.4-45.2); HEMOGLOBIN 13.4 GM/dL (10.7-15.3); MCH 35.5 pg (25.7-33.7); MCHC 35.2 g/dl (32.0-36.0); MEAN PLT VOLUME 8.8 fl (7.5-11.1); PLATELET COUNT 199 K/MM3 (134-434); RBC 3.78 M/mm3 (3.60-5.2); RDW 17.6 % (11.6-15.6); WHITE BLOOD COUNT 9.6 K/mm3 (4.0-10.0)
[2019-04-20 16:44] LABS: ALBUMIN 4.4 g/dl (3.4-5.0); BILIRUBIN,TOTAL 1.7 mg/dL (0.2-1); BLOOD UREA NITROGEN 15.7 mg/dL (7-18); CALCIUM 9.3 mg/dL (8.5-10.1); CREATININE 1.1 mg/dL (0.55-1.3); TOT PROT 8.2 g/dl (6.4-8.2)
[2019-04-20] MEDS: chlordiazePOXIDE HCL 25 MG CAPSULE PO SCH ×2 (17:12→22:28)
[2019-04-20] MEDS: RANITIDINE HCL 150 MG TABLET (FP) PO SCH ×2 (17:12→22:28)
[2019-04-20] MEDS: THIAMINE HCL 100 MG TABLET (FP) PO SCH (22:28)
[2019-04-20] MEDS: MELATONIN 5 MG TABLETS PO PRN (22:28)
[2019-04-21] MEDS: chlordiazePOXIDE HCL 25 MG CAPSULE PO SCH ×4 (05:44→22:36)
[2019-04-21] MEDS ORDERED: LEVOTHYROXINE NA 25 MCG TABLET (FP) PO SCH (07:00)
[2019-04-21] MEDS: LEVOTHYROXINE 25 MCG, LEVOTHYROXINE 100 MCG PO SCH (07:23)
--- NOTE | 2019-04-21 09:31 | PN ---
S CIWA - CIWA Score Nausea/Vomitin-Mild Nausea/No Vomiting Muscle Tremors: 3 Anxiety: 3 Agitation: 2 Paroxysmal Sweats: 1-Minimal Palms Moist Orientation: 0-Oriented Tacttile Disturbances: 0-None Auditory Disturbances: 0-None Visual Disturbances: 0-None Headache: 2-Mild CIWA-Ar Total Score: 12 S Progress Note (SOAP) Subjective: 54 years old female admitted on 04/20/19 for acute alcohol withdrawal sx management doing well with labium detox regimen vomiting treated with tigan I'M on 04/20/19 with good effect no vomiting today but nausea tolerate food and fluid well bp elevation 0n 04/20/19 treated with lisinopril 10 mg + labium detox regimen with good effect mild headaches today be within acceptable range continue lisinopril 10 mg today and librium reduce lisinopril to 5 mg due to patient dose not have history of hypertension patient received 30 days naltrexon 50 mg po od on 04/08/19 to combat alcohol addiction emotional support given encourage the patient seeking community support reporting feel tired today prefers resting on bed encourage oral fluid Objective: 04/21/19 09:30 Vital Signs Temperature 97.4 F L 04/21/19 06:45 Pulse Rate 75 04/21/19 06:45 Respiratory Rate 18 04/21/19 06:45 Blood Pressure 123/82 04/21/19 06:45 O2 Sat by Pulse Oximetry (%) Laboratory Last Values WBC 9.6 K/mm3 (4.0-10.0) 04/20/19 14:59 RBC 3.78 M/mm3 (3.60-5.2) 04/20/19 14:59 Hgb 13.4 GM/dL (10.7-15.3) 04/20/19 14:59 Hct 38.1 % (32.4-45.2) 04/20/19 14:59 MCV 101.0 fl (80-96) H 04/20/19 14:59 MCH 35.5 pg (25.7-33.7) H 04/20/19 14:59 MCHC 35.2 g/dl (32.0-36.0) 04/20/19 14:59 RDW 17.6 % (11.6-15.6) H 04/20/19 14:59 Plt Count 199 K/MM3 (134-434) D 04/20/19 14:59 MPV 8.8 fl (7.5-11.1) 04/20/19 14:59 Sodium 138 mmol/L (136-145) 04/20/19 14:59 Potassium 4.0 mmol/L (3.5-5.1) 04/20/19 14:59 Chloride 100 mmol/L (98-107) 04/20/19 14:59 Carbon Dioxide 27 mmol/L (21-32) 04/20/19 14:59 Anion Gap 11 MMOL/L (8-16) 04/20/19 14:59 BUN 15.7 mg/dL (7-18) 04/20/19 14:59 Creatinine 1.1 mg/dL (0.55-1.3) 04/20/19 14:59 Est GFR (CKD-EPI)AfAm 65.00 04/20/19 14:59 Est GFR (CKD-EPI)NonAf 56.08 04/20/19 14:59 Random Glucose 144 mg/dL (74-106) H 04/20/19 14:59 Calcium 9.3 mg/dL (8.5-10.1) 04/20/19 14:59 Total Bilirubin 1.7 mg/dL (0.2-1) H 04/20/19 14:59 AST 76 U/L (15-37) H 04/20/19 14:59 ALT 52 U/L (13-61) 04/20/19 14:59 Alkaline Phosphatase 77 U/L (45-117) 04/20/19 14:59 Total Protein 8.2 g/dl (6.4-8.2) 04/20/19 14:59 Albumin 4.4 g/dl (3.4-5.0) 04/20/19 14:59 lab noted fasting glucose Assessment: 04/21/19 09:31 alcohol withdrawal sx alert oriented x 3 04/21/19 09:32 S1S2 REGULAR breathing ease and even abdomen soft non tender Plan: continue librium detox regimen
[2019-04-21] MEDS ORDERED: LISINOPRIL 10 MG TABLET (FP) PO SCH (10:00)
[2019-04-21] MEDS: PRENATAL VITAMINS W/ FOLIC ACID TABLET (FP) PO SCH (10:27)
[2019-04-21] MEDS: RANITIDINE HCL 150 MG TABLET (FP) PO SCH ×2 (10:29→22:36)
[2019-04-21] MEDS ORDERED: ONDANSETRON *ODT* 4 MG TABLET SL PRN (21:00)
[2019-04-21] MEDS: THIAMINE HCL 100 MG TABLET (FP) PO SCH (22:36)
[2019-04-21] MEDS: MELATONIN 5 MG TABLETS PO PRN (22:37)
[2019-04-21 23:26] LABS: EPI CELLS 2.1 /HPF (0-5/HPF); HYALINE CASTS 23 /lpf (0-8); URINE APPEARANCE CLOUDY; URINE BACTERIA 44.2 /hpf (NEGATIVE); URINE BILIRUBIN NEGATIVE (NEGATIVE); URINE COLOR DK YELLOW; URINE GLUCOSE (UA) NEGATIVE (NEGATIVE); URINE KETONE NEGATIVE (NEGATIVE); URINE LEUK ESTERASE 3+ (NEGATIVE); URINE NITRITE NEGATIVE (NEGATIVE); URINE PROTEIN NEGATIVE (NEGATIVE); URINE RBC 5 /hpf (0-4); URINE WBC 152 /hpf (0-5)
[2019-04-22] MEDS ORDERED: LEVOTHYROXINE NA 25 MCG TABLET (FP) ONE (04:33)
[2019-04-22] MEDS ORDERED: LEVOTHYROXINE NA 100 MCG TABLET (FP) ONE (04:33)
[2019-04-22] MEDS: chlordiazePOXIDE HCL 25 MG CAPSULE PO SCH ×4 (05:34→22:28)
[2019-04-22] MEDS: LEVOTHYROXINE 25 MCG, LEVOTHYROXINE 100 MCG PO SCH (06:28)
--- NOTE | 2019-04-22 09:19 | PN ---
[facility] CIWA - CIWA Score Nausea/Vomitin-Mild Nausea/No Vomiting Muscle Tremors: 3 Anxiety: 2 Agitation: 2 Paroxysmal Sweats: 2 Orientation: 0-Oriented Tacttile Disturbances: 0-None Auditory Disturbances: 0-None Visual Disturbances: 0-None Headache: 0-None Present CIWA-Ar Total Score: 10 [facility] Progress Note (SOAP) Subjective: doing well with librium detox regimen less sweat mild tremor prefers to be discharged on 04/23/19 due to "feeling better" resting on bed feeling "tired" today patient will be assessed daily for possible 04/23/19 Objective: 04/22/19 09:18 Vital Signs Temperature 96.5 F L 04/22/19 06:31 Pulse Rate 72 04/22/19 06:31 Respiratory Rate 18 04/22/19 06:31 Blood Pressure 110/72 04/22/19 06:31 O2 Sat by Pulse Oximetry (%) Vital Signs Laboratory Last Values WBC 9.6 K/mm3 (4.0-10.0) 04/20/19 14:59 RBC 3.78 M/mm3 (3.60-5.2) 04/20/19 14:59 Hgb 13.4 GM/dL (10.7-15.3) 04/20/19 14:59 Hct 38.1 % (32.4-45.2) 04/20/19 14:59 MCV 101.0 fl (80-96) H 04/20/19 14:59 MCH 35.5 pg (25.7-33.7) H 04/20/19 14:59 MCHC 35.2 g/dl (32.0-36.0) 04/20/19 14:59 RDW 17.6 % (11.6-15.6) H 04/20/19 14:59 Plt Count 199 K/MM3 (134-434) D 04/20/19 14:59 MPV 8.8 fl (7.5-11.1) 04/20/19 14:59 Sodium 138 mmol/L (136-145) 04/20/19 14:59 Potassium 4.0 mmol/L (3.5-5.1) 04/20/19 14:59 Chloride 100 mmol/L (98-107) 04/20/19 14:59 Carbon Dioxide 27 mmol/L (21-32) 04/20/19 14:59 Anion Gap 11 MMOL/L (8-16) 04/20/19 14:59 BUN 15.7 mg/dL (7-18) 04/20/19 14:59 Creatinine 1.1 mg/dL (0.55-1.3) 04/20/19 14:59 Est GFR (CKD-EPI)AfAm 65.00 04/20/19 14:59 Est GFR (CKD-EPI)NonAf 56.08 04/20/19 14:59 Random Glucose 144 mg/dL (74-106) H 04/20/19 14:59 Calcium 9.3 mg/dL (8.5-10.1) 04/20/19 14:59 Total Bilirubin 1.7 mg/dL (0.2-1) H 04/20/19 14:59 AST 76 U/L (15-37) H 04/20/19 14:59 ALT 52 U/L (13-61) 04/20/19 14:59 Alkaline Phosphatase 77 U/L (45-117) 04/20/19 14:59 Total Protein 8.2 g/dl (6.4-8.2) 04/20/19 14:59 Albumin 4.4 g/dl (3.4-5.0) 04/20/19 14:59 Urine Color Dk yellow 04/21/19 15:07 Urine Appearance Cloudy 04/21/19 15:07 Urine pH 6.0 (5.0-8.0) 04/21/19 15:07 Ur Specific [place] 1.020 (1.010-1.035) 04/21/19 15:07 Urine Protein Negative (NEGATIVE) 04/21/19 15:07 Urine Glucose (UA) Negative (NEGATIVE) 04/21/19 15:07 Urine Ketones Negative (NEGATIVE) 04/21/19 15:07 Urine Blood Negative (NEGATIVE) 04/21/19 15:07 Urine Nitrite Negative (NEGATIVE) 04/21/19 15:07 Urine Bilirubin Negative (NEGATIVE) 04/21/19 15:07 Urine Urobilinogen 2.0 mg/dL (0.2-1.0) H 04/21/19 15:07 Ur Leukocyte Esterase 3+ (NEGATIVE) H 04/21/19 15:07 Urine WBC (Auto) 152 /hpf (0-5) 04/21/19 15:07 Urine RBC (Auto) 5 /hpf (0-4) 04/21/19 15:07 Urine Casts (Auto) 23 /lpf (0-8) 04/21/19 15:07 U Epithel Cells (Auto) 2.1 /HPF (0-5/HPF) 04/21/19 15:07 Urine Bacteria (Auto) 44.2 /hpf (NEGATIVE) 04/21/19 15:07 RPR Titer Nonreactive (NONREACTIVE) 04/20/19 14:59 lab noted uti 04/22/19 09:20 bactrim ds bid x 5 days increase oral fluid Assessment: 04/22/19 09:21 alcohol withdrawal sx alert oriented x 3 04/22/19 09:21 speech clearly coherently S1S2 Regular Plan: continue librium detox regimen
[2019-04-22] MEDS: SULFAMETHOXAZOLE/TRIMETHOPRIM 800MG/160MG D.S. TABLET PO SCH ×2 (10:36→22:28)
[2019-04-22] MEDS: LISINOPRIL 5 MG TABLET (FP) PO SCH (10:36)
[2019-04-22] MEDS: PRENATAL VITAMINS W/ FOLIC ACID TABLET (FP) PO SCH (10:36)
[2019-04-22] MEDS: RANITIDINE HCL 150 MG TABLET (FP) PO SCH ×2 (10:36→22:28)
[2019-04-22] MEDS: MELATONIN 5 MG TABLETS PO PRN (22:28)
[2019-04-22] MEDS: THIAMINE HCL 100 MG TABLET (FP) PO SCH (22:28)
[2019-04-23] MEDS ORDERED: LEVOTHYROXINE NA 25 MCG TABLET (FP) ONE (04:46)
[2019-04-23] MEDS ORDERED: LEVOTHYROXINE NA 100 MCG TABLET (FP) ONE (04:46)
[2019-04-23] MEDS: chlordiazePOXIDE HCL 10 MG CAPSULE PO SCH ×4 (06:00→22:17)
[2019-04-23] MEDS: LEVOTHYROXINE 25 MCG, LEVOTHYROXINE 100 MCG PO SCH (06:47)
--- NOTE | 2019-04-23 09:55 | PN ---
[facility] CIWA - CIWA Score Nausea/Vomitin-Mild Nausea/No Vomiting Muscle Tremors: 2 Anxiety: 2 Agitation: 2 Paroxysmal Sweats: No Perspiration Orientation: 0-Oriented Tacttile Disturbances: 0-None Auditory Disturbances: 0-None Visual Disturbances: 0-None Headache: 0-None Present CIWA-Ar Total Score: 7 S Progress Note (SOAP) Subjective: doing well with librium detox regimen c/o gassy " I have stomach problem for a long time" abdomen soft non tender bowel sound x 3 gassy gas-x uncomplicated UTI reporting "I always have so sort of urinary problem every time I go to my doctor " discuss oral fluid, hygiene, none allergic detergent bactrim ds bid Objective: 04/23/19 09:59 Vital Signs Temperature 96.9 F L 04/23/19 09:36 Pulse Rate 81 04/23/19 09:36 Respiratory Rate 18 04/23/19 09:36 Blood Pressure 120/90 04/23/19 09:36 O2 Sat by Pulse Oximetry (%) Laboratory Last Values WBC 9.6 K/mm3 (4.0-10.0) 04/20/19 14:59 RBC 3.78 M/mm3 (3.60-5.2) 04/20/19 14:59 Hgb 13.4 GM/dL (10.7-15.3) 04/20/19 14:59 Hct 38.1 % (32.4-45.2) 04/20/19 14:59 MCV 101.0 fl (80-96) H 04/20/19 14:59 MCH 35.5 pg (25.7-33.7) H 04/20/19 14:59 MCHC 35.2 g/dl (32.0-36.0) 04/20/19 14:59 RDW 17.6 % (11.6-15.6) H 04/20/19 14:59 Plt Count 199 K/MM3 (134-434) D 04/20/19 14:59 MPV 8.8 fl (7.5-11.1) 04/20/19 14:59 Sodium 138 mmol/L (136-145) 04/20/19 14:59 Potassium 4.0 mmol/L (3.5-5.1) 04/20/19 14:59 Chloride 100 mmol/L (98-107) 04/20/19 14:59 Carbon Dioxide 27 mmol/L (21-32) 04/20/19 14:59 Anion Gap 11 MMOL/L (8-16) 04/20/19 14:59 BUN 15.7 mg/dL (7-18) 04/20/19 14:59 Creatinine 1.1 mg/dL (0.55-1.3) 04/20/19 14:59 Est GFR (CKD-EPI)AfAm 65.00 04/20/19 14:59 Est GFR (CKD-EPI)NonAf 56.08 04/20/19 14:59 Random Glucose 144 mg/dL (74-106) H 04/20/19 14:59 Fasting Glucose 115 mg/dL (74-106) H 04/22/19 07:00 Calcium 9.3 mg/dL (8.5-10.1) 04/20/19 14:59 Total Bilirubin 1.7 mg/dL (0.2-1) H 04/20/19 14:59 AST 76 U/L (15-37) H 04/20/19 14:59 ALT 52 U/L (13-61) 04/20/19 14:59 Alkaline Phosphatase 77 U/L (45-117) 04/20/19 14:59 Total Protein 8.2 g/dl (6.4-8.2) 04/20/19 14:59 Albumin 4.4 g/dl (3.4-5.0) 04/20/19 14:59 Urine Color Dk yellow 04/21/19 15:07 Urine Appearance Cloudy 04/21/19 15:07 Urine pH 6.0 (5.0-8.0) 04/21/19 15:07 Ur Specific [place] 1.020 (1.010-1.035) 04/21/19 15:07 Urine Protein Negative (NEGATIVE) 04/21/19 15:07 Urine Glucose (UA) Negative (NEGATIVE) 04/21/19 15:07 Urine Ketones Negative (NEGATIVE) 04/21/19 15:07 Urine Blood Negative (NEGATIVE) 04/21/19 15:07 Urine Nitrite Negative (NEGATIVE) 04/21/19 15:07 Urine Bilirubin Negative (NEGATIVE) 04/21/19 15:07 Urine Urobilinogen 2.0 mg/dL (0.2-1.0) H 04/21/19 15:07 Ur Leukocyte Esterase 3+ (NEGATIVE) H 04/21/19 15:07 Urine WBC (Auto) 152 /hpf (0-5) 04/21/19 15:07 Urine RBC (Auto) 5 /hpf (0-4) 04/21/19 15:07 Urine Casts (Auto) 23 /lpf (0-8) 04/21/19 15:07 U Epithel Cells (Auto) 2.1 /HPF (0-5/HPF) 04/21/19 15:07 Urine Bacteria (Auto) 44.2 /hpf (NEGATIVE) 04/21/19 15:07 RPR Titer Nonreactive (NONREACTIVE) 04/20/19 14:59 lab noted patient agrees to return to her primary care provider for rule out hyperglycemia Assessment: 04/23/19 10:01 alcohol withdrawal sx patient agrees to stay till 04/25/[address] to go home "I have no money when I passing liquid stores on the way home" Plan: continue libirum detox regimen gas - x
[2019-04-23] MEDS: PRENATAL VITAMINS W/ FOLIC ACID TABLET (FP) PO SCH (11:07)
[2019-04-23] MEDS: RANITIDINE HCL 150 MG TABLET (FP) PO SCH ×2 (11:08→22:17)
[2019-04-23] MEDS: SULFAMETHOXAZOLE/TRIMETHOPRIM 800MG/160MG D.S. TABLET PO SCH ×2 (11:08→22:18)
[2019-04-23] MEDS: LISINOPRIL 5 MG TABLET (FP) PO SCH (12:55)
[2019-04-23] MEDS: SIMETHICONE 80 MG TAB.CHEW (FP) PO SCH ×4 (12:55→22:17)
[2019-04-23] MEDS: THIAMINE HCL 100 MG TABLET (FP) PO SCH (22:17)
[2019-04-23] MEDS: MELATONIN 5 MG TABLETS PO PRN (22:18)
[2019-04-24] MEDS ORDERED: LEVOTHYROXINE NA 25 MCG TABLET (FP) ONE (04:40)
[2019-04-24] MEDS ORDERED: LEVOTHYROXINE NA 100 MCG TABLET (FP) ONE (04:40)
[2019-04-24] MEDS: LEVOTHYROXINE 25 MCG, LEVOTHYROXINE 100 MCG PO SCH (06:01)
[2019-04-24] MEDS: chlordiazePOXIDE HCL 10 MG CAPSULE PO SCH ×2 (06:01→16:40)
[2019-04-24] MEDS: SIMETHICONE 80 MG TAB.CHEW (FP) PO SCH ×4 (10:31→23:02)
[2019-04-24] MEDS: SULFAMETHOXAZOLE/TRIMETHOPRIM 800MG/160MG D.S. TABLET PO SCH ×2 (10:31→23:03)
[2019-04-24] MEDS: RANITIDINE HCL 150 MG TABLET (FP) PO SCH ×2 (10:31→23:02)
[2019-04-24] MEDS: LISINOPRIL 5 MG TABLET (FP) PO SCH (10:31)
[2019-04-24] MEDS: PRENATAL VITAMINS W/ FOLIC ACID TABLET (FP) PO SCH (10:31)
--- NOTE | 2019-04-24 12:03 | PN ---
[facility] CIWA - CIWA Score Nausea/Vomitin-No Nausea/No Vomiting Muscle Tremors: 1-None Visible, but [place] Anxiety: 1-Mildly Anxious Agitation: 0-Normal Activity Paroxysmal Sweats: No Perspiration Orientation: 0-Oriented Tacttile Disturbances: 0-None Auditory Disturbances: 0-None Visual Disturbances: 0-None Headache: 0-None Present CIWA-Ar Total Score: 2 [facility] Progress Note (SOAP) Subjective: Patient is almost asymptomatic. Progressed well in detox. Wanted to leave today due to environment with verbal altercations on the floor. She plans to be discharged home. She does not wish to continue to rehab. Objective: 04/24/19 11:59 BP:121/68 P:84 R:18 T:97.7 Laboratory 04/20/19 04/20/19 04/20/19 14:59 14:59 14:59 WBC 9.6 K/mm3 K/mm3 (4.0-10.0) RBC 3.78 M/mm3 M/mm3 (3.60-5.2) Hgb 13.4 GM/dL GM/dL (10.7-15.3) Hct 38.1 % % (32.4-45.2) MCV 101.0 fl H fl (80-96) MCH 35.5 pg H pg (25.7-33.7) MCHC 35.2 g/dl g/dl (32.0-36.0) RDW 17.6 % H % (11.6-15.6) Plt Count 199 K/MM3 D K/MM3 (134-434) MPV 8.8 fl fl (7.5-11.1) Sodium 138 mmol/L mmol/L (136-145) Potassium 4.0 mmol/L mmol/L (3.5-5.1) Chloride 100 mmol/L mmol/L (98-107) Carbon Dioxide 27 mmol/L mmol/L (21-32) Anion Gap 11 MMOL/L MMOL/L (8-16) BUN 15.7 mg/dL mg/dL (7-18) Creatinine 1.1 mg/dL mg/dL (0.55-1.3) Est GFR (CKD-EPI)AfAm 65.00 Est GFR (CKD-EPI)NonAf 56.08 Random Glucose 144 mg/dL H mg/dL (74-106) Fasting Glucose Calcium 9.3 mg/dL mg/dL (8.5-10.1) Total Bilirubin 1.7 mg/dL H mg/dL (0.2-1) AST 76 U/L H U/L (15-37) ALT 52 U/L U/L (13-61) Alkaline Phosphatase 77 U/L U/L (45-117) Total Protein 8.2 g/dl g/dl (6.4-8.2) Albumin 4.4 g/dl g/dl (3.4-5.0) Urine Color Urine Appearance Urine pH Ur Specific [place] Urine Protein Urine Glucose (UA) Urine Ketones Urine Blood Urine Nitrite Urine Bilirubin Urine Urobilinogen Ur Leukocyte Esterase Urine WBC (Auto) Urine RBC (Auto) Urine Casts (Auto) U Epithel Cells (Auto) Urine Bacteria (Auto) RPR Titer Nonreactive (NONREACTIVE) 04/21/19 04/22/19 15:07 07:00 WBC RBC Hgb Hct MCV MCH MCHC RDW Plt Count MPV Sodium Potassium Chloride Carbon Dioxide Anion Gap BUN Creatinine Est GFR (CKD-EPI)AfAm Est GFR (CKD-EPI)NonAf Random Glucose Fasting Glucose 115 mg/dL H mg/dL (74-106) Calcium Total Bilirubin AST ALT Alkaline Phosphatase Total Protein Albumin Urine Color Dk yellow Urine Appearance Cloudy Urine pH 6.0 (5.0-8.0) Ur Specific [place] 1.020 (1.010-1.035) Urine Protein Negative (NEGATIVE) Urine Glucose (UA) Negative (NEGATIVE) Urine Ketones Negative (NEGATIVE) Urine Blood Negative (NEGATIVE) Urine Nitrite Negative (NEGATIVE) Urine Bilirubin Negative (NEGATIVE) Urine Urobilinogen 2.0 mg/dL H mg/dL (0.2-1.0) Ur Leukocyte Esterase 3+ H (NEGATIVE) Urine WBC (Auto) 152 /hpf /hpf (0-5) Urine RBC (Auto) 5 /hpf /hpf (0-4) Urine Casts (Auto) 23 /lpf /lpf (0-8) U Epithel Cells (Auto) 2.1 /HPF /HPF (0-5/HPF) Urine Bacteria (Auto) 44.2 /hpf /hpf (NEGATIVE) RPR Titer Assessment: 04/24/19 12:00 1. Alcohol dependence: 2. UTI: Plan: 1. Will complete detox tomorrow. To be discharged to home. Educated patient about continued outpatient treatment options. However, she refused. 2. UTI on day 3: Encouraged her to remain and not leave AMA. Repeat a U/A today. Dr. Dubon
[2019-04-24] MEDS: THIAMINE HCL 100 MG TABLET (FP) PO SCH (23:02)
[2019-04-24] MEDS: MELATONIN 5 MG TABLETS PO PRN (23:03)
[2019-04-25] MEDS ORDERED: chlordiazePOXIDE HCL 10 MG CAPSULE PO ONE (05:00)
[2019-04-25] MEDS ORDERED: LEVOTHYROXINE NA 100 MCG TABLET (FP) ONE (05:03)
[2019-04-25] MEDS ORDERED: LEVOTHYROXINE NA 25 MCG TABLET (FP) ONE (05:03)
[2019-04-25] MEDS: LEVOTHYROXINE 25 MCG, LEVOTHYROXINE 100 MCG PO SCH (06:01)
[2019-04-25 09:30] VITALS: BP 87/63; PULSE 85; TEMP 97.6
[2019-04-25] MEDS: SIMETHICONE 80 MG TAB.CHEW (FP) PO SCH (09:39)
[2019-04-25] MEDS: PRENATAL VITAMINS W/ FOLIC ACID TABLET (FP) PO SCH (09:39)
[2019-04-25] MEDS: RANITIDINE HCL 150 MG TABLET (FP) PO SCH (09:39)
[2019-04-25] MEDS: SULFAMETHOXAZOLE/TRIMETHOPRIM 800MG/160MG D.S. TABLET PO SCH (09:39)
[2019-04-25] MEDS: LISINOPRIL 5 MG TABLET (FP) PO SCH (09:41)
--- NOTE | 2019-04-25 20:49 | DS ---
[facility] Detox Discharge Summary Admission Date: 04/20/19 Discharge Date: 04/25/19 - History Present History: Alcohol Dependence Additional Comments: PATIENT RETURNING HOME; WILL ATTEND [facility] ( [place], [place]) FOR AFTERCARE. PRESCRIPTION FOR REMAINDER OF COURSE OF ANTIBIOTIC (BACTRIM DS) STARTED FOR PATIENT FOR POSSIBLE UTI WHILE SHE WAS ADMITTED FOR DETOX SENT TO [facility] ([place], [place]) FOR AFTERCARE. PATIENT ADVISED TO ENGINEER STEAM AND COMPLETE FULL COURSE OF REMAINDER OF PRESCRIPTION. PATIENT VERBALIZED UNDERSTANDING OF RECOMMENDATION. PATIENT WAS DISCHARGED FROM DETOX UNIT IN STABLE MEDICAL CONDITION. Pertinent Past History: Asthma, Depression, Back Pain, Hypothyroidism. - Physical Exam Results Vital Signs: Vital Signs Temperature 97.6 F 04/25/19 09:30 Pulse Rate 85 04/25/19 09:30 Respiratory Rate 18 04/25/19 09:30 Blood Pressure 87/63 L 04/25/19 09:30 O2 Sat by Pulse Oximetry (%) Pertinent Admission Physical Exam Findings: WITHDRAWAL SYMPTOMS. Laboratory Tests 04/20/19 04/20/19 04/20/19 14:59 14:59 14:59 WBC 9.6 RBC 3.78 Hgb 13.4 Hct 38.1 MCV 101.0 H MCH 35.5 H MCHC 35.2 RDW 17.6 H Plt Count 199 D MPV 8.8 Sodium 138 Potassium 4.0 Chloride 100 Carbon Dioxide 27 Anion Gap 11 BUN 15.7 Creatinine 1.1 Est GFR (CKD-EPI)AfAm 65.00 Est GFR (CKD-EPI)NonAf 56.08 Random Glucose 144 H Fasting Glucose Calcium 9.3 Total Bilirubin 1.7 H AST 76 H ALT 52 Alkaline Phosphatase 77 Total Protein 8.2 Albumin 4.4 Urine Color Urine Appearance Urine pH Ur Specific [place] Urine Protein Urine Glucose (UA) Urine Ketones Urine Blood Urine Nitrite Urine Bilirubin Urine Urobilinogen Ur Leukocyte Esterase Urine WBC (Auto) Urine RBC (Auto) Urine Casts (Auto) U Epithel Cells (Auto) Urine Bacteria (Auto) RPR Titer Nonreactive 04/21/19 04/22/19 15:07 07:00 WBC RBC Hgb Hct MCV MCH MCHC RDW Plt Count MPV Sodium Potassium Chloride Carbon Dioxide Anion Gap BUN Creatinine Est GFR (CKD-EPI)AfAm Est GFR (CKD-EPI)NonAf Random Glucose Fasting Glucose 115 H Calcium Total Bilirubin AST ALT Alkaline Phosphatase Total Protein Albumin Urine Color Dk yellow Urine Appearance Cloudy Urine pH 6.0 Ur Specific [place] 1.020 Urine Protein Negative Urine Glucose (UA) Negative Urine Ketones Negative Urine Blood Negative Urine Nitrite Negative Urine Bilirubin Negative Urine Urobilinogen 2.0 H Ur Leukocyte Esterase 3+ H Urine WBC (Auto) 152 Urine RBC (Auto) 5 Urine Casts (Auto) 23 U Epithel Cells (Auto) 2.1 Urine Bacteria (Auto) 44.2 RPR Titer LABS NOTED. - Treatment Hospital Course: Detox Protocol Followed, Detoxed Safely, Responded well, Discharged Condition Good Patient has Accepted a Rehab Referral to: [facility]IENT [facility] ([place], [place]). - Medication Discharge Medications: Ambulatory Orders Levothyroxine [Synthroid -] 125 mcg PO DAILY@0700 #14 tablet 09/24/18 Albuterol Sulfate Inhaler - [Ventolin HFA Inhaler -] 2 puff IH Q6HPO PRN Sulfamethoxazole/Trimethoprim [Bactrim Ds -] 1 tab PO BID 5 Days #10 tablet - Diagnosis (1) Bruising Status: Acute (2) Alcohol dependence with uncomplicated withdrawal Status: Acute (3) Asthma Status: Chronic Qualifiers: Asthma severity: mild Asthma persistence: intermittent Asthma complication type: with status asthmaticus Qualified Code(s): J45.22 - Mild intermittent asthma with status asthmaticus (4) Back pain Status: Chronic Qualifiers: Back pain location: low back pain Chronicity: chronic Back pain laterality: unspecified Sciatica presence: unspecified whether sciatica present Qualified Code(s): M54.5 - Low back pain; G89.29 - Other chronic pain (5) Depression Status: Chronic Qualifiers: Depression Type: major depressive disorder Major depression recurrence: unspecified whether recurrent Active/Remission status: remission status unspecified Qualified Code(s): F32.9 - Major depressive disorder, single episode, unspecified (6) Hypothyroidism Status: Chronic Qualifiers: Hypothyroidism type: unspecified Qualified Code(s): E03.9 - Hypothyroidism , unspecified (7) Overweight (BMI 25.0-29.9) Status: Chronic - AMA Did Patient Leave Against Medical Advice: No [facility] CIWA - CIWA Score Nausea/Vomitin-No Nausea/No Vomiting Muscle Tremors: None Anxiety: 0-No Anxiety, at Ease Agitation: 0-Normal Activity Paroxysmal Sweats: No Perspiration Orientation: 0-Oriented Tacttile Disturbances: 0-None Auditory Disturbances: 0-None Visual Disturbances: 0-None Headache: 0-None Present CIWA-Ar Total Score: 0
== END 2019-04-25 09:50 | disposition home or self-care (01) | DRG 897 ==
LOC: YASAS 10:02 → Y3N 14:33
PROVIDERS: ADMIT Surgery; ATTEND Surgery
PROC: HZ2ZZZZ Detoxification Services for Substance Abuse Treatment (ICD-10-PCS; principal; 2019-04-20)
DX: F10.230 Alcohol dependence with withdrawal, uncomplicated (principal); N39.0 Urinary tract infection, site not specified; J45.22 Mild intermittent asthma with status asthmaticus; F32.9 Major depressive disorder, single episode, unspecified; E03.9 Hypothyroidism, unspecified; M54.5 Low back pain; E66.9 Obesity, unspecified; Z68.27 Body mass index [BMI] 27.0-27.9, adult; S80.02XA Contusion of left knee, initial encounter; W19.XXXA Unspecified fall, initial encounter; Y93.89 Activity, other specified; Y92.89 Other specified places as the place of occurrence of the external cause; Y99.8 Other external cause status
CPT/HCPCS: 36415; 80053; 81003; 82947; 85027; 86593; 93005; 93010; Q0162

== ENCOUNTER 2021-01-12 09:44 | Inpatient (IN) | payer BC ==
[2021-01-12 13:12] VITALS: BMI 27.3
[2021-01-12] MEDS ORDERED: MAGNESIUM HYDROX 2400MG/30ML ORAL SUSPENSION 30 ML CUP PO PRN (13:31)
[2021-01-12] MEDS ORDERED: diazePAM 5 MG TABLET PO PRN (13:31)
[2021-01-12] MEDS ORDERED: ACETAMINOPHEN 325 MG TABLET (FP) PO PRN ×2 (13:31)
[2021-01-12] MEDS ORDERED: MAG HYDROX/AL HYDROX/SIMETH 30 ML UNIT-DOSE CUP PO PRN (13:31)
[2021-01-12] MEDS ORDERED: MAGNESIUM CITRATE 300 ML BOTTLE PO PRN (13:31)
[2021-01-12] MEDS ORDERED: METHOCARBAMOL 500 MG TABLET PO PRN (13:31)
[2021-01-12] MEDS ORDERED: MENTHOL/PHENOL 1 EACH UD MM PRN (13:31)
[2021-01-12] MEDS ORDERED: IBUPROFEN 400 MG TABLET (FP) PO PRN (13:31)
[2021-01-12] MEDS ORDERED: BISMUTH SUBSALICYLATE 262 MG/15 ML BTL PO PRN (13:31)
[2021-01-12] MEDS ORDERED: ONDANSETRON *ODT* 4 MG TABLET SL PRN (13:31)
[2021-01-12] MEDS ORDERED: ALBUTEROL SO4 HFA INHALER IH PRN (13:32)
[2021-01-12] MEDS: hydrOXYzine PAMOATE 25 MG CAPSULE (FP) PO SCH ×3 (15:39→22:29)
[2021-01-12] MEDS: PRENATAL VITAMINS W/ FOLIC ACID TABLET (FP) PO SCH (15:39)
[2021-01-12 16:23] LABS: HEMATOCRIT 38.3 % (32.4-45.2); HEMOGLOBIN 13.2 GM/dL (10.7-15.3); MCH 37.6 pg (25.7-33.7); MCHC 34.5 g/dl (32.0-36.0); MEAN CELL VOLUME 108.8 fl (80-96); MEAN PLT VOLUME 8.2 fl (7.5-11.1); PLATELET COUNT 158 K/MM3 (134-434); RBC 3.53 M/mm3 (3.60-5.2); RDW 15.5 % (11.6-15.6); WHITE BLOOD COUNT 3.7 K/mm3 (4.0-10.0)
[2021-01-12 16:26] LABS: ALBUMIN 4.5 g/dl (3.4-5.0); CALCIUM 9.3 mg/dL (8.5-10.1)
[2021-01-12 16:29] LABS: CREATININE 1.2 mg/dL (0.55-1.3)
[2021-01-12 16:30] LABS: BILIRUBIN,TOTAL 0.9 mg/dL (0.2-1); TOT PROT 8.1 g/dl (6.4-8.2)
[2021-01-12] MEDS: diazePAM 5 MG TABLET PO SCH ×2 (17:55→22:29)
[2021-01-12] MEDS: THIAMINE HCL 100 MG TABLET (FP) PO SCH (22:29)
[2021-01-12] MEDS: MELATONIN 5 MG TABLETS PO SCH (22:29)
[2021-01-13] MEDS: diazePAM 5 MG TABLET PO SCH ×4 (06:37→22:09)
[2021-01-13] MEDS: hydrOXYzine PAMOATE 25 MG CAPSULE (FP) PO SCH ×5 (06:38→22:11)
[2021-01-13] MEDS: LEVOTHYROXINE 100 MCG, LEVOTHYROXINE 25 MCG PO SCH (06:39)
[2021-01-13] MEDS ORDERED: LEVOTHYROXINE NA 25 MCG TABLET (FP) PO SCH (07:00)
[2021-01-13] MEDS: PRENATAL VITAMINS W/ FOLIC ACID TABLET (FP) PO SCH (10:34)
[2021-01-13] MEDS: SERTRALINE HCL 50 MG TABLET (FP) PO SCH ×2 (10:36→22:05)
[2021-01-13] MEDS ORDERED: busPIRone HCL 10 MG TABLET (FP) PO PRN (11:17)
[2021-01-13] MEDS ORDERED: HYDROCORTISONE 0.5% TOPICAL OINTMENT TUBE TP PRN (13:49)
[2021-01-13] MEDS ORDERED: HYDROCORTISONE 0.5% TOPICAL CREAM 30 GM TUBE TP PRN (15:31)
[2021-01-13] MEDS: MELATONIN 5 MG TABLETS PO SCH (22:08)
[2021-01-13] MEDS: THIAMINE HCL 100 MG TABLET (FP) PO SCH (22:08)
[2021-01-14] MEDS: hydrOXYzine PAMOATE 25 MG CAPSULE (FP) PO SCH ×5 (06:18→22:06)
[2021-01-14] MEDS: diazePAM 5 MG TABLET PO SCH ×3 (06:18→22:07)
[2021-01-14] MEDS: LEVOTHYROXINE 100 MCG, LEVOTHYROXINE 25 MCG PO SCH (06:49)
[2021-01-14] MEDS: PRENATAL VITAMINS W/ FOLIC ACID TABLET (FP) PO SCH (10:25)
[2021-01-14] MEDS: SERTRALINE HCL 50 MG TABLET (FP) PO SCH ×2 (10:25→22:06)
[2021-01-14] MEDS: THIAMINE HCL 100 MG TABLET (FP) PO SCH (22:06)
[2021-01-14] MEDS: MELATONIN 5 MG TABLETS PO SCH (22:06)
[2021-01-15 06:36] LABS: SARS-CoV-2 NAA Not Detected (Not Detected)
[2021-01-15] MEDS: diazePAM 5 MG TABLET PO SCH ×2 (07:00→17:29)
[2021-01-15] MEDS: hydrOXYzine PAMOATE 25 MG CAPSULE (FP) PO SCH ×5 (07:01→22:01)
[2021-01-15] MEDS: LEVOTHYROXINE 100 MCG, LEVOTHYROXINE 25 MCG PO SCH (08:06)
[2021-01-15] MEDS: PRENATAL VITAMINS W/ FOLIC ACID TABLET (FP) PO SCH (10:53)
[2021-01-15] MEDS: SERTRALINE HCL 50 MG TABLET (FP) PO SCH ×2 (10:54→22:01)
[2021-01-15 21:46] VITALS: TEMP 97.1
[2021-01-15] MEDS: MELATONIN 5 MG TABLETS PO SCH (22:01)
[2021-01-15] MEDS: THIAMINE HCL 100 MG TABLET (FP) PO SCH (22:01)
[2021-01-16] MEDS: hydrOXYzine PAMOATE 25 MG CAPSULE (FP) PO SCH ×2 (05:51→09:19)
[2021-01-16] MEDS ORDERED: diazePAM 5 MG TABLET PO ONE (06:00)
[2021-01-16] MEDS: LEVOTHYROXINE 100 MCG, LEVOTHYROXINE 25 MCG PO SCH (06:50)
[2021-01-16] MEDS: PRENATAL VITAMINS W/ FOLIC ACID TABLET (FP) PO SCH (09:19)
[2021-01-16] MEDS: SERTRALINE HCL 50 MG TABLET (FP) PO SCH (09:19)
[2021-01-16 09:46] VITALS: BP 117/89; PULSE 82
== END 2021-01-16 11:33 | disposition home or self-care (01) | DRG 897 ==
LOC: YASAS 09:44 → Y3N 14:10
PROVIDERS: ADMIT Allergy & Immunology; ATTEND Allergy & Immunology
PROC: HZ2ZZZZ Detoxification Services for Substance Abuse Treatment (ICD-10-PCS; principal; 2021-01-12)
DX: F10.24 Alcohol dependence with alcohol-induced mood disorder (principal); F32.9 Major depressive disorder, single episode, unspecified; E03.9 Hypothyroidism, unspecified; I10 Essential (primary) hypertension; L30.9 Dermatitis, unspecified; M54.5 Low back pain; G89.29 Other chronic pain; E66.3 Overweight; Z68.27 Body mass index [BMI] 27.0-27.9, adult; J45.909 Unspecified asthma, uncomplicated; H93.19 Tinnitus, unspecified ear; Z62.810 Personal history of physical and sexual abuse in childhood; Z87.891 Personal history of nicotine dependence; Z89.021 Acquired absence of right finger(s)
CPT/HCPCS: 36415; 80053; 85027; 86780; C9803; Q0162; U0003; U0005